=== PATIENT | male | born 1955 | race Caucasian/White ===

== ENCOUNTER 2017-06-26 19:58 | Inpatient (IN) | payer MEDICARE ==
[~2017-06-26] VITALS: Ht 177.8 cm; Wt 127.0 kg
[2017-06-26] VITALS (8 sets, daily range): BP systolic 100–121; BP diastolic 64–84; PULSE 100–131; RESP 18–20; TEMP 98.4–98.6; O2SAT 95–99
[~2017-06-26 19:58] MED LIST: APIX5 PO; GABA100C4 PO; OXYC1SOL5 PO; OXYC20 PO; PERI8.6T PO; Z.0.WALKERFOLD
--- NOTE | 2017-06-26 20:29 | PD ---
HPI Chief Complaint: Cardiac Complaint Time Seen by Provider: 20:17 Travel History International Travel<30 days: No Contact w/Intl Traveler<30days: No Traveled to known affect area: No History of Present Illness HPI The patient is a 61-year-old male that went to an urgent care center because of flu symptoms, cough and congestion. When he was there was found that he had atrial fibrillation. The patient has no history of atrial fibrillation and he was sent to the emergency department. He denies any chest pain, fever or shortness of breath. He denies coughing up any blood. He has been on a course the past for DVT and pulmonary embolus but he has been off Eliquis now for about 6 months. The patient states for the past 2 weeks he has noted palpitations but states he could have had atrial fibrillation for several years. He states his last EKG was several years ago. PFSH Past Medical History Hx Anticoagulant Therapy: No (Prior history) Arthritis: Yes Autoimmune Disease: No Anxiety: No Depression: No Heart Rhythm Problems: No Cancer: No Cardiovascular Problems: Yes High Cholesterol: No Chemotherapy: No Chest Pain: No Congestive Heart Failure: No Diabetes: No Diminished Hearing: No Endocrine: No Gastrointestinal Disorders: Yes GERD: No Genitourinary: No Headaches: Yes Hiatal Hernia: No Hypertension: Yes Immune Disorder: No Implanted Vascular Access Dvce: No Musculoskeletal: Yes Neurologic: Yes Psychiatric: No Reproductive: No Respiratory: No Immunizations Current: No Radiation Therapy: No Seizures: No Sickle Cell Disease: No Thyroid Disease: No Ulcer: No ?: Not Past Surgical History Abdominal Surgery: No AICD: No Arteriovenous Shunt: No Cardiac Surgery: No Cholecystectomy: Yes (12/31/15) Ear Surgery: No Endocrine Surgery: No Eye Surgery: No Genitourinary Surgery: No Gynecologic Surgery: No Insulin Pump: No Joint Replacement: No Neurologic Surgery: No Oral Surgery: No Pacemaker: No Thoracic Surgery: No Other Surgery: Yes (BILATERAL ROTATOR CUFF SURGERIES) Social History Alcohol Use: Yes (RARE) Tobacco Use: No (QUIT 15 + YRS) Substance Use: No Allergies-Medications (Allergen,Severity, Reaction): Coded Allergies: No Known Allergies (Unverified Allergy, Unknown, 06/26/17) Reported Meds & Prescriptions Reported Meds & Active Scripts Active Review of Systems Except as stated in HPI: all other systems reviewed are Neg Physical Exam Narrative GENERAL: The patient is alert, oriented 3 in no apparent distress. His vital signs show heart rate of 131 with blood pressure 100/72. SKIN: Focused skin assessment warm/dry. HEAD: Atraumatic. Normocephalic. EYES: Pupils equal and round. No scleral icterus. No injection or drainage. ENT: No nasal bleeding or discharge. Mucous membranes pink and moist. NECK: Trachea midline. No JVD. CARDIOVASCULAR: Atrial fibrillation with RVR. No murmur appreciated. RESPIRATORY: No accessory muscle use. Clear to auscultation. Breath sounds equal bilaterally. GASTROINTESTINAL: Abdomen soft, non-tender, nondistended. Hepatic and splenic margins not palpable. MUSCULOSKELETAL: No obvious deformities. No clubbing. No cyanosis. No edema. NEUROLOGICAL: Awake and alert. No obvious cranial nerve deficits. Motor grossly within normal limits. Normal speech. PSYCHIATRIC: Appropriate mood and affect; insight and judgment normal. Data Data Last Documented VS Vital Signs Date Time Temp Pulse Resp B/P (MAP) Pulse Ox O2 Delivery O2 Flow Rate FiO2 06/26/17 22:10 102 20 109/64 (79) 99 Room Air 06/26/17 20:18 98.6 Orders Orders Electrocardiogram (06/26/17 20:24) B-Type Natriuretic Peptide (06/26/17 20:24) Ckmb (Isoenzyme) Profile (06/26/17 20:24) Complete Blood Count With Diff (06/26/17 20:24) Comprehensive Metabolic Panel (06/26/17 20:24) Magnesium (Mg) (06/26/17 20:24) Prothrombin Time / Inr (Pt) (06/26/17 20:24) Act Partial Throm Time (Ptt) (06/26/17 20:24) Troponin I (06/26/17 20:24) Chest, Single Ap (06/26/17 20:24) Ecg Monitoring (06/26/17 20:24) Bilateral Bp Monitoring (06/26/17 20:24) Iv Access Insert/Monitor (06/26/17 20:24) Oximetry (06/26/17 20:24) Oxygen Administration (06/26/17 20:24) Aspirin (Aspirin) (06/26/17 20:30) Sodium Chloride 0.9% Flush (Ns Flush) (06/26/17 20:30) Influenzae A/B Antigen (06/26/17 20:25) CKMB (06/26/17 20:30) CKMB% (06/26/17 20:30) Diltiazem Inj (Cardizem Inj) (06/26/17 21:45) Admit To Inpatient (06/26/17 ) Vital Signs (Adult) Q4H (06/26/17 22:22) Activity Oob With Assistance (06/26/17 22:22) Stretcher Drier Operator / Telemetry .CONTINUOUS (06/26/17 22:22) Intake + Output ILDA.QSHIFT (06/26/17 22:22) Diet Heart Healthy (06/27/17 Breakfast) Sodium Chlor 0.9% 1000 Ml Inj (Ns 1000 M (06/26/17 22:22) Sodium Chloride 0.9% Flush (Ns Flush) (06/26/17 22:30) Sodium Chloride 0.9% Flush (Ns Flush) (06/27/17 09:00) Ondansetron Inj (Zofran Inj) (06/26/17 22:30) Comprehensive Metabolic Panel (06/27/17 06:00) Complete Blood Count With Diff (06/27/17 06:00) Troponin I (06/27/17 00:00) Troponin I (06/27/17 06:00) Enoxaparin Inj (Lovenox Inj) (06/27/17 09:00) Acetaminophen (Tylenol) (06/26/17 22:30) Acetamin-Hydrocod 325-5 Mg ([employer] 5-325 (06/26/17 22:30) Acetamin-Hydrocod 325-10 Mg ([employer] 10-32 (06/26/17 22:30) Docusate Sodium-Senna (Celestina-Colace) (06/27/17 09:00) Magnesium Hydroxide Liq (Milk Of Magnesi (06/26/17 22:30) Sennosides (Senokot) (06/26/17 22:30) Bisacodyl Supp (Dulcolax Supp) (06/26/17 22:30) Lactulose Liq (Lactulose Liq) (06/26/17 22:30) Inpatient Certification (06/26/17 ) Consult Cardiology (06/26/17 ) Echo 2d Comp With Doppler (06/26/17 ) Vital Signs (Adult) Q15MX4,Q4H (06/26/17 22:24) Stretcher Drier Operator / Telemetry ILDA.Q8H (06/26/17 22:24) Cardiac Rhythm ILDA.Q8H (06/26/17 22:24) Notify Dr: Other (06/26/17 22:24) Diltiazem Inj (Cardizem Inj) (06/26/17 22:30) Diltiazem Inj (Cardizem Inj) (06/26/17 22:30) Admit Order (Ed Use Only) (06/26/17 22:25) Labs Laboratory Tests Test 06/26/17 20:30 White Blood Count 5.7 TH/MM3 Red Blood Count 4.86 MIL/MM3 Hemoglobin 14.6 GM/DL Hematocrit 43.9 % Mean Corpuscular Volume 90.2 FL Mean Corpuscular Hemoglobin 30.1 PG Mean Corpuscular Hemoglobin Concent 33.4 % Red Cell Distribution Width 12.2 % Platelet Count 248 TH/MM3 Mean Platelet Volume 7.7 FL Neutrophils (%) (Auto) 61.4 % Lymphocytes (%) (Auto) 21.0 % Monocytes (%) (Auto) 13.3 % Eosinophils (%) (Auto) 3.6 % Basophils (%) (Auto) 0.7 % Neutrophils # (Auto) 3.5 TH/MM3 Lymphocytes # (Auto) 1.2 TH/MM3 Monocytes # (Auto) 0.8 TH/MM3 Eosinophils # (Auto) 0.2 TH/MM3 Basophils # (Auto) 0.0 TH/MM3 CBC Comment DIFF FINAL Differential Comment Prothrombin Time 11.1 SEC Prothromb Time International Ratio 1.1 RATIO Activated Partial Thromboplast Time 25.4 SEC Blood Urea Nitrogen 15 MG/DL Creatinine 0.87 MG/DL Random Glucose 88 MG/DL Total Protein 7.2 GM/DL Albumin 3.5 GM/DL Calcium Level 8.5 MG/DL Magnesium Level 2.1 MG/DL Alkaline Phosphatase 52 U/L Aspartate Amino Transf (AST/SGOT) 19 U/L Alanine Aminotransferase (ALT/SGPT) 24 U/L Total Bilirubin 0.7 MG/DL Sodium Level 141 MEQ/L Potassium Level 3.8 MEQ/L Chloride Level 107 MEQ/L Carbon Dioxide Level 27.7 MEQ/L Anion Gap 6 MEQ/L Estimat Glomerular Filtration Rate 90 ML/MIN Total Creatine Kinase 157 U/L Creatine Kinase MB 1.6 NG/ML Troponin I LESS THAN 0.02 NG/ML B-Type Natriuretic Peptide 46 PG/ML MDM Medical Decision Making Medical Screen Exam Complete: Yes Emergency Medical Condition: Yes Medical Record Reviewed: Yes Interpretation(s) The influenza A/B antigen is negative for flu a and flu B antigen. The CBC is normal. The EKG shows atrial fibrillation with RVR at 129. Differential Diagnosis No onset atrial fibrillation, flu syndrome, pneumonia, acute coronary syndrome Narrative Course The patient has new-onset atrial fibrillation. I discussed the patient with Dr. Mirza, the patient will be admitted to her. The patient apparently needs a Cardizem drip, the Cardizem bullae wore off quickly and the heart rate went to 120 to 130. Boby Calloway MD Jun 26, 2017 20:29
[2017-06-26] MEDS ORDERED: ASPIRIN 325 MG TAB PO ONE (20:30)
[2017-06-26] MEDS ORDERED: SODIUM CHLORIDE 0.9% FLUSH 10 ML FLUSH IVF PRN (20:30)
[2017-06-26 20:47] LABS: AUTOMATED NEUTROPHIL # 3.5 TH/MM3 (1.8-7.7); BASOPHIL % 0.7 % (0.0-2.0); EOSINOPHIL # 0.2 TH/MM3 (0-0.4); EOSINOPHIL % 3.6 % (0.0-4.0); HEMATOCRIT 43.9 % (39.0-51.0); HEMOGLOBIN 14.6 GM/DL (13.0-17.0); LYMPHOCYTE # 1.2 TH/MM3 (1.0-4.8); MEAN CELL VOLUME 90.2 FL (80.0-100.0); MEAN CORPUSCULAR HEMOGLOBIN 30.1 PG (27.0-34.0); MEAN CORPUSCULAR HGB CONC 33.4 % (32.0-36.0); MEAN PLATELET VOLUME 7.7 FL (7.0-11.0); MONO % 13.3 % (0.0-8.0); MONOCYTE # 0.8 TH/MM3 (0-0.9); NEUT % 61.4 % (16.0-70.0); PLATELET COUNT 248 TH/MM3 (150-450); RED BLOOD COUNT 4.86 MIL/MM3 (4.50-5.90); RED CELL DISTRIBUTION WIDTH 12.2 % (11.6-17.2); WHITE BLOOD COUNT 5.7 TH/MM3 (4.0-11.0)
[2017-06-26 20:55] LABS: CHLORIDE 107 MEQ/L (98-107); SODIUM (NA) 141 MEQ/L (136-145)
[2017-06-26 20:58] LABS: CALCIUM 8.5 MG/DL (8.5-10.1)
[2017-06-26 20:59] LABS: ALBUMIN 3.5 GM/DL (3.4-5.0); BICARBONATE 27.7 MEQ/L (21.0-32.0); BLOOD UREA NITROGEN 15 MG/DL (7-18); GLUCOSE,RANDOM 88 MG/DL (74-106); MAGNESIUM 2.1 MG/DL (1.5-2.5)
[2017-06-26 21:01] LABS: INTERNATIONAL NORMALIZED RATIO 1.1 RATIO; PROTHROMBIN TIME - PATIENT 11.1 SEC (9.8-11.6)
[2017-06-26 21:02] LABS: ALT (GPT) 24 U/L (12-78); AST (GOT) 19 U/L (15-37); CREATININE 0.87 MG/DL (0.60-1.30); GLOMERULAR FILTRATION RATE 90 ML/MIN (>89)
[2017-06-26 21:03] LABS: TOTAL BILIRUBIN ADULT 0.7 MG/DL (0.2-1.0)
[2017-06-26 21:05] LABS: ALKALINE PHOSPHATASE 52 U/L (45-117); TOTAL PROTEIN 7.2 GM/DL (6.4-8.2)
[2017-06-26 21:07] LABS: TROPONIN I LESS THAN 0.02 NG/ML (0.02-0.05)
--- NOTE | 2017-06-26 21:14 | RADRPT ---
EXAM DATE/TIME: 06/26/2017 20:47 [facility] COMPARISON: No previous studies available for comparison. INDICATIONS : Palpitations. MEDICAL HISTORY : Deep venous thrombosis. Hypertension SURGICAL HISTORY : Cholecystectomy. ENCOUNTER: Initial ACUITY: 1 day PAIN SCORE: 3/10 LOCATION: Bilateral chest FINDINGS: A single view of the chest demonstrates the lungs to be symmetrically aerated without evidence of mas s, infiltrate or effusion. The cardiomediastinal contours are unremarkable. Osseous structures are intact. CONCLUSION: 1. No acute disease. Brandon Coyle MD on June 26, 2017 at 21:11 Board Certified Radiologist. This report was verified electronically.
[2017-06-26] MEDS ORDERED: DILTIAZEM HCL 25 MG/5 ML VIAL IV ONE (21:45)
[2017-06-26] MEDS: SODIUM CHLOR 0.9% 1000 ML INJ 1,000 ML IV SCH (22:22)
[2017-06-26] MEDS ORDERED: ONDANSETRON HCL 4 MG/2 ML VIAL IVP PRN (22:30)
[2017-06-26] MEDS ORDERED: ACETAMINOPHEN 325 MG TAB PO PRN (22:30)
[2017-06-26] MEDS ORDERED: SENNOSIDES 8.6 MG TAB PO PRN (22:30)
[2017-06-26] MEDS ORDERED: MAGNESIUM HYDROXIDE SUSP 30 ML CUP PO PRN (22:30)
[2017-06-26] MEDS ORDERED: ACETAMINOPHEN/HYDROcodone 325 MG/5 MG TAB PO PRN (22:30)
[2017-06-26] MEDS ORDERED: SODIUM CHLORIDE 0.9% FLUSH 10 ML FLUSH IV FLUSH PRN (22:30)
[2017-06-26] MEDS ORDERED: BISACODYL 10 MG SUPP RECTAL PRN (22:30)
[2017-06-26] MEDS ORDERED: DILTIAZEM HCL 25 MG/5 ML VIAL IV PUSH ONE (22:30)
[2017-06-26] MEDS ORDERED: ACETAMINOPHEN/HYDROcodone 325 MG/10 MG TAB PO PRN (22:30)
[2017-06-26] MEDS ORDERED: LACTULOSE SYRUP 20 GM/30 ML CUP PO PRN (22:30)
[2017-06-26] MEDS ORDERED: DILTIAZEM INJ 125 MG in SODIUM CHLORIDE 0.9% INJ 100 ML IV PRN (22:30)
[2017-06-26] MEDS ORDERED: CHLORHEXIDINE GLUCONATE 2 % 1 PACK (2 CLOTHS)(extra cloths) TOPICAL PRN (23:45)
[2017-06-27] VITALS (42 sets, daily range): BP systolic 64–211; BP diastolic 45–98; PULSE 54–112; RESP 15–48; TEMP 97.5–98.9; O2SAT 92–98
[2017-06-27] MEDS ORDERED: CHLORHEXIDINE GLUCONATE 2 % 1 PACK (2 CLOTHS)(taper/protocol) TOPICAL SCH (04:00)
[2017-06-27] MEDS ORDERED: SODIUM CHLORID 0.9% 500 ML INJ 500 ML IV ONE (04:15)
[2017-06-27] MEDS: SODIUM CHLOR 0.9% 1000 ML INJ 1,000 ML IV SCH (04:35)
[2017-06-27] MEDS ORDERED: FAMOTIDINE 20 MG/2 ML VIAL IV PUSH SCH (05:00)
[2017-06-27 05:51] LABS: AUTOMATED NEUTROPHIL # 6.2 TH/MM3 (1.8-7.7); BASOPHIL % 0.4 % (0.0-2.0); EOSINOPHIL # 0.1 TH/MM3 (0-0.4); EOSINOPHIL % 1.5 % (0.0-4.0); HEMATOCRIT 38.6 % (39.0-51.0); HEMOGLOBIN 12.9 GM/DL (13.0-17.0); LYMPH % 9.3 % (9.0-44.0); LYMPHOCYTE # 0.7 TH/MM3 (1.0-4.8); MEAN CELL VOLUME 90.1 FL (80.0-100.0); MEAN CORPUSCULAR HEMOGLOBIN 30.2 PG (27.0-34.0); MEAN CORPUSCULAR HGB CONC 33.5 % (32.0-36.0); MEAN PLATELET VOLUME 7.4 FL (7.0-11.0); MONO % 9.2 % (0.0-8.0); MONOCYTE # 0.7 TH/MM3 (0-0.9); NEUT % 79.6 % (16.0-70.0); PLATELET COUNT 232 TH/MM3 (150-450); RED BLOOD COUNT 4.28 MIL/MM3 (4.50-5.90); RED CELL DISTRIBUTION WIDTH 12.2 % (11.6-17.2); WHITE BLOOD COUNT 7.7 TH/MM3 (4.0-11.0)
[2017-06-27 05:58] LABS: CHLORIDE 107 MEQ/L (98-107); SODIUM (NA) 141 MEQ/L (136-145)
[2017-06-27 06:09] LABS: ALKALINE PHOSPHATASE 44 U/L (45-117); ALT (GPT) 22 U/L (12-78); AST (GOT) 18 U/L (15-37); BICARBONATE 27.1 MEQ/L (21.0-32.0); BLOOD UREA NITROGEN 17 MG/DL (7-18); CALCIUM 7.6 MG/DL (8.5-10.1); GLOMERULAR FILTRATION RATE 76 ML/MIN (>89); GLUCOSE,RANDOM 138 MG/DL (74-106); TOTAL BILIRUBIN ADULT 0.8 MG/DL (0.2-1.0); TOTAL PROTEIN 6.3 GM/DL (6.4-8.2)
[2017-06-27 06:19] LABS: TROPONIN I LESS THAN 0.02 NG/ML (0.02-0.05)
--- NOTE | 2017-06-27 08:43 | PD.CONS ---
HPI Consult Requested By Primary Care Physician Miranda Bell MD History of Present Illness 61-year-old male that went to an urgent care center because of flu symptoms, cough and congestion. When he was there was found that he had atrial fibrillation. The patient has no history of atrial fibrillation and he was sent to the emergency department. He denies any chest pain, fever or shortness of breath. He has been on a course the past for DVT and pulmonary embolus but he has been off Eliquis now for about 6 months. The patient states for the past 2 weeks he has noted palpitations but states he could have had atrial fibrillation for several years. Review of Systems Consitutional: DENIES: Fatigue, Fever, Chills, Weight gain, Weight loss Eyes: DENIES: Amaurosis Fugax, Change in vision HEENT: DENIES: Lightheadedness, Change in hearing Respiratory: DENIES: See HPI, Cough, Snoring, Shortness of breath, Wheezing, Sputum production Cardiovascular: DENIES: See HPI, Chest pain, Palpitations, Syncope, Tachycardia Gastrointestinal: DENIES: Nausea, Vomiting, Change in bowel habits, Reflux, Bloody stools, Melena Genitourinary: DENIES: Urinary incontinence, Difficulty voiding Integumentary: DENIES: Rash Neurologic: DENIES: Tingling or numbness, Memory problems, Poor Balance, Stroke symptoms Musculoskeletal: DENIES: Joint pain, Muscle pain, Limited range of motion, Back pain Psychiatric: DENIES: Anxiety, Depression, Sleep disturbances Hematologic: DENIES: Bruising tendencies, Bleeding tendencies Endocrine: DENIES: Weight gain, Weight loss, Thyroid disease Past Family Social History Allergies: Coded Allergies: No Known Allergies (Unverified Allergy, Unknown, 06/26/17) Reported Medications Reported Meds & Active Scripts Active Active Ordered Medications Current Medications Medications (Trade) Dose Ordered Sig/Sharath Route Start Time Stop Time Status Last Admin (NS Flush) 2 ml UNSCH PRN IVF 06/26/17 20:30 06/26/17 20:37 Sodium Chloride 1,000 ml @ 100 mls/hr Q10H IV 06/26/17 22:22 06/27/17 04:35 (NS Flush) 2 ml UNSCH PRN IV FLUSH 06/26/17 22:30 (NS Flush) 2 ml BID IV FLUSH 06/27/17 09:00 (Zofran Inj) 4 mg Q6H PRN IVP 06/26/17 22:30 06/27/17 02:51 (Lovenox Inj) 40 mg Q24H SQ 06/27/17 09:00 06/27/17 08:38 (Tylenol) 650 mg Q6H PRN PO 06/26/17 22:30 ([place] 5-325 Mg) 1 tab Q4H PRN PO 06/26/17 22:30 ([place] 10-325 Mg) 1 tab Q4H PRN PO 06/26/17 22:30 06/27/17 01:10 (Celestina-Colace) 1 tab BID PO 06/27/17 09:00 06/27/17 08:38 (Milk Of Magnesia Liq) 30 ml Q12H PRN PO 06/26/17 22:30 (Senokot) 17.2 mg Q12H PRN PO 06/26/17 22:30 (Dulcolax Supp) 10 mg DAILY PRN RECTAL 06/26/17 22:30 (Lactulose Liq) 30 ml DAILY PRN PO 06/26/17 22:30 Diltiazem HCl 125 mg/Sodium Chloride 125 ml @ 5 mls/hr TITRATE PRN IV 06/26/17 22:30 Future Hold 06/26/17 22:58 Miscellaneous Information Patient in critical care unit? Ass... [id number] .XX 06/26/17 23:45 06/26/17 23:45 (Chlorhexidine 2% Cloth) 3 pack DAILY@04 TOPICAL 06/27/17 04:00 07/01/17 04:01 06/27/17 04:00 (Chlorhexidine 2% Cloth) 3 pack UNSCH PRN TOPICAL 06/26/17 23:45 07/01/17 23:59 (Flu (Quadrivalent) Vaccine Inj) 0.5 ml ONCE ONCE IM 06/27/17 09:00 06/27/17 09:01 06/27/17 08:40 (Pepcid Inj) 20 mg Q12H IV PUSH 06/27/17 05:00 06/27/17 04:34 Physical Exam Vital Signs Vital Signs Date Time Temp Pulse Resp B/P (MAP) Pulse Ox O2 Delivery O2 Flow Rate FiO2 06/27/17 06:46 80 18 93/73 (80) 1/6/18 06:31 80 20 85/59 (68) 06/27/17 06:16 82 17 86/58 (67) 06/27/17 06:11 88 06/27/17 06:04 97.5 78 22 82/64 (70) 92 06/27/17 05:37 86 18 95/68 (77) 95 06/27/17 05:15 82 19 85/63 (70) 06/27/17 05:01 80 21 81/61 (68) 06/27/17 04:16 82 19 89/54 (66) 06/27/17 04:01 76 17 89/69 (76) 06/27/17 04:00 78 06/27/17 03:53 76 16 99/66 (77) 06/27/17 03:43 70 16 92/65 (74) 98 06/27/17 03:27 58 46 78/48 (58) 06/27/17 03:16 54 48 64/51 (55) 06/27/17 02:48 68 22 211/92 (131) 06/27/17 02:31 78 33 104/69 (81) 06/27/17 02:16 94 18 129/82 (98) 06/27/17 02:10 18 06/27/17 02:01 98 17 145/93 (110) 06/27/17 02:00 72 06/27/17 01:46 100 20 151/98 (115) 06/27/17 01:31 94 20 150/96 (114) 06/27/17 01:16 102 15 118/74 (89) 06/27/17 01:01 98 38 149/80 (103) 06/27/17 00:46 96 32 142/82 (102) 06/27/17 00:37 104 36 134/81 (98) 06/27/17 00:14 111 06/27/17 00:14 108 06/26/17 23:27 98.4 100 20 117/66 (83) 98 06/26/17 23:05 94 20 106/65 (79) 99 06/26/17 22:58 104 106/65 06/26/17 22:10 102 20 109/64 (79) 99 Room Air 06/26/17 22:02 108 20 118/71 (87) 97 Room Air 06/26/17 22:01 125 18 110/73 (85) 96 Room Air 06/26/17 21:49 111 18 114/78 (90) 95 Room Air 121/84 (96) 06/26/17 20:51 125 20 117/71 (86) 97 Room Air 105/70 (82) 06/26/17 20:22 131 20 97 Room Air 06/26/17 20:18 98.6 131 20 100/72 (81) 99 Physical Exam GENERAL: Well-nourished, well-developed patient. SKIN: Warm and dry. HEAD: Normocephalic. EYES: No scleral icterus. No injection or drainage. NECK: Supple, trachea midline. No JVD or lymphadenopathy. CARDIOVASCULAR: Irr Irr without murmurs, gallops, or rubs. RESPIRATORY: Breath sounds equal bilaterally. No accessory muscle use. GASTROINTESTINAL: Abdomen soft, non-tender, nondistended. EXTREMITIES: No cyanosis, or edema. NEUROLOGICAL: Awake, alert, and oriented x 3. Non-focal. Laboratory Laboratory Tests Test 06/26/17 20:30 06/27/17 00:00 06/27/17 05:38 White Blood Count 5.7 7.7 Red Blood Count 4.86 4.28 Hemoglobin 14.6 12.9 Hematocrit 43.9 38.6 Mean Corpuscular Volume 90.2 90.1 Mean Corpuscular Hemoglobin 30.1 30.2 Mean Corpuscular Hemoglobin Concent 33.4 33.5 Red Cell Distribution Width 12.2 12.2 Platelet Count 248 232 Mean Platelet Volume 7.7 7.4 Neutrophils (%) (Auto) 61.4 79.6 Lymphocytes (%) (Auto) 21.0 9.3 Monocytes (%) (Auto) 13.3 9.2 Eosinophils (%) (Auto) 3.6 1.5 Basophils (%) (Auto) 0.7 0.4 Neutrophils # (Auto) 3.5 6.2 Lymphocytes # (Auto) 1.2 0.7 Monocytes # (Auto) 0.8 0.7 Eosinophils # (Auto) 0.2 0.1 Basophils # (Auto) 0.0 0.0 CBC Comment DIFF FINAL DIFF FINAL Differential Comment Prothrombin Time 11.1 Prothromb Time International Ratio 1.1 Activated Partial Thromboplast Time 25.4 Blood Urea Nitrogen 15 17 Creatinine 0.87 1.00 Random Glucose 88 138 Total Protein 7.2 6.3 Albumin 3.5 3.0 Calcium Level 8.5 7.6 Magnesium Level 2.1 Alkaline Phosphatase 52 44 Aspartate Amino Transf (AST/SGOT) 19 18 Alanine Aminotransferase (ALT/SGPT) 24 22 Total Bilirubin 0.7 0.8 Sodium Level 141 141 Potassium Level 3.8 3.5 Chloride Level 107 107 Carbon Dioxide Level 27.7 27.1 Anion Gap 6 7 Estimat Glomerular Filtration Rate 90 76 Total Creatine Kinase 157 Creatine Kinase MB 1.6 Troponin I LESS THAN 0.02 LESS THAN 0.02 LESS THAN 0.02 B-Type Natriuretic Peptide 46 Date/Time Source Procedure Growth Status 06/26/17 20:35 Nasal Washing Influenza Types A,B Antigen (JESSICA) - Final NEGATIVE FOR FLU A AND B ANTIGEN.... Complete Result Diagram: 06/27/17 0538 06/27/17537 Imaging Last Impressions Chest X-Ray 06/26/172023 Signed Impressions: Service Date/Time: Monday, June 26, 2017 20:47 - CONCLUSION: 1. No acute disease. Brandon Coyle MD Assessment and Plan Problem List: (1) Atrial fibrillation ICD Codes: I48.91 - Unspecified atrial fibrillation Plan: ?New onset Afib Rate control Cardiac enzymes negative No CV complaints Recommendations 1. Wean Cardizem off 2. Cardizem 30mg PO QID 3. Start Eliquis 5mg PO BID 4. Follow with Cardiology upon discharge Thank you for the opportunity for take part in the care of this patient (2) Atypical chest pain ICD Codes: R07.89 - Other chest pain Status: Acute (3) H/O tobacco use, presenting hazards to health ICD Codes: Z87.891 - Personal history of nicotine dependence Status: Acute (4) Pulmonary embolism ICD Codes: I26.99 - Other pulmonary embolism without acute cor pulmonale Status: Acute (5) DVT (deep venous thrombosis) ICD Codes: I82.409 - Acute embolism and thrombosis of unspecified deep veins of unspecified lower extremity Status: Acute Problem Qualifiers (1) Atrial fibrillation: Qualified Codes: I48.0 - Paroxysmal atrial fibrillation Steve Medrano MD Jun 27, 2017 08:43
[2017-06-27] MEDS ORDERED: INFLUENZA VIRUS VACCINE (QUADRIVALENT) 0.5 ML SYR IM ONE (09:00)
[2017-06-27] MEDS ORDERED: SODIUM CHLORIDE 0.9% FLUSH 10 ML FLUSH IV FLUSH SCH (09:00)
[2017-06-27] MEDS ORDERED: DOCUSATE SODIUM 50 MG/SENNA 8.6 MG TAB PO SCH (09:00)
[2017-06-27] MEDS ORDERED: ENOXAPARIN SODIUM 40 MG/0.4 ML SYRINGE SQ SCH (09:00)
--- NOTE | 2017-06-27 11:59 | HHI.HP ---
[facility] Service [facility] Primary Care Physician Miranda Bell MD Admission Diagnosis atrial fibrillation with RVR Diagnoses: Chief Complaint: afib, coughing Travel History International Travel<30 Days: No Contact w/Intl Traveler <30 Da: No Traveled to Known Affected Are: No History of Present Illness 61-year-old white male being admitted for A. fib with RVR. Patient was in his usual state of health until about a week ago when he began experiencing a hacking cough which progressed in its intensity throughout the week. He reports having intermittent episodes of a racing heartbeat and lightheadedness. Due to persistence of symptoms he proceeded to the urgent care yesterday where he had an EKG done which demonstrated atrial fibrillation with RVR and the patient was referred to the emergency department. Patient denies having any chest pain outside of his coughing spells. Review of Systems Except as stated in HPI: all other systems reviewed are Neg Past Family Social History Past Medical History Sleep apnea Pulmonary emboli, lower extremity thromboembolism Past Surgical History Bilateral shoulder surgery, cholecystectomy Allergies: Coded Allergies: No Known Allergies (Unverified Allergy, Unknown, 06/26/17) Family History Hypertension Social History Ex-smoker, smoked since his teenage years until about 20 years ago. Reports being a very light intermittent alcohol drinker Physical Exam Vital Signs Vital Signs Date Time Temp Pulse Resp B/P (MAP) Pulse Ox O2 Delivery O2 Flow Rate FiO2 06/27/17 11:01 100 29 100/60 (73) 06/27/17 10:01 102 21 99/45 (63) 06/27/17 10:00 98.9 06/27/17 09:14 106 31 105/64 (78) 06/27/17 09:12 98 21 89/72 (78) 06/27/17 08:46 96 21 108/74 (85) 06/27/17 08:31 108 24 112/79 (90) 06/27/17 08:16 86 17 103/73 (83) 06/27/17 08:01 88 17 99/79 (86) 06/27/17 08:00 100 06/27/17 07:46 90 18 100/69 (79) 06/27/17 07:31 90 20 98/77 (84) 06/27/17 07:16 80 19 99/67 (78) 06/27/17 07:01 84 20 100/63 (75) 06/27/17 06:46 80 18 93/73 (80) 06/27/17 06:31 80 20 85/59 (68) 06/27/17 06:16 82 17 86/58 (67) 06/27/17 06:11 88 06/27/17 06:04 97.5 78 22 82/64 (70) 92 06/27/17 05:37 86 18 95/68 (77) 95 06/27/17 05:15 82 19 85/63 (70) 06/27/17 05:01 80 21 81/61 (68) 06/27/17 04:16 82 19 89/54 (66) 06/27/17 04:01 76 17 89/69 (76) 06/27/17 04:00 78 06/27/17 03:53 76 16 99/66 (77) 06/27/17 03:43 70 16 92/65 (74) 98 06/27/17 03:27 58 46 78/48 (58) 06/27/17 03:16 54 48 64/51 (55) 06/27/17 02:48 68 22 211/92 (131) 06/27/17 02:31 78 33 104/69 (81) 06/27/17 02:16 94 18 129/82 (98) 06/27/17 02:10 18 06/27/17 02:01 98 17 145/93 (110) 06/27/17 02:00 72 06/27/17 01:46 100 20 151/98 (115) 06/27/17 01:31 94 20 150/96 (114) 06/27/17 01:16 102 15 118/74 (89) 06/27/17 01:01 98 38 149/80 (103) 06/27/17 00:46 96 32 142/82 (102) 06/27/17 00:37 104 36 134/81 (98) 06/27/17 00:14 111 06/27/17 00:14 108 1/5/18 23:27 98.4 100 20 117/66 (83) 98 06/26/17 23:05 94 20 106/65 (79) 99 06/26/17 22:58 104 106/65 06/26/17 22:10 102 20 109/64 (79) 99 Room Air 06/26/17 22:02 108 20 118/71 (87) 97 Room Air 06/26/17 22:01 125 18 110/73 (85) 96 Room Air 06/26/17 21:49 111 18 114/78 (90) 95 Room Air 121/84 (96) 06/26/17 20:51 125 20 117/71 (86) 97 Room Air 105/70 (82) 06/26/17 20:22 131 20 97 Room Air 06/26/17 20:18 98.6 131 20 100/72 (81) 99 Physical Exam VS: afebrile GENERAL: Middle-aged white male, obese, no acute distress SKIN: Warm and dry. EYES: No scleral icterus. No injection or drainage. ENT: No nasal bleeding or discharge. Mucous membranes pink and moist. CARDIOVASCULAR: Regular rate and rhythm currently . no murmurs RESPIRATORY: No accessory muscle use. Clear to auscultation. Breath sounds equal bilaterally. GASTROINTESTINAL: Abdomen soft, non-tender, nondistended. Extremities: No clubbing, cyanosis, or edema. No obvious deformities. MUSCULOSKELETAL: grossly intact ROM with 5/5; adequate muscle bulk and tone for age and habitus NEUROLOGICAL: Awake and alert. No obvious cranial nerve deficits. No facial droop nor slurred speech noted. PSYCHIATRIC: Appropriate mood and affect; insight and judgment normal. Laboratory Laboratory Tests Test 06/26/17 20:30 06/27/17 00:00 06/27/17 05:38 White Blood Count 5.7 7.7 Red Blood Count 4.86 4.28 Hemoglobin 14.6 12.9 Hematocrit 43.9 38.6 Mean Corpuscular Volume 90.2 90.1 Mean Corpuscular Hemoglobin 30.1 30.2 Mean Corpuscular Hemoglobin Concent 33.4 33.5 Red Cell Distribution Width 12.2 12.2 Platelet Count 248 232 Mean Platelet Volume 7.7 7.4 Neutrophils (%) (Auto) 61.4 79.6 Lymphocytes (%) (Auto) 21.0 9.3 Monocytes (%) (Auto) 13.3 9.2 Eosinophils (%) (Auto) 3.6 1.5 Basophils (%) (Auto) 0.7 0.4 Neutrophils # (Auto) 3.5 6.2 Lymphocytes # (Auto) 1.2 0.7 Monocytes # (Auto) 0.8 0.7 Eosinophils # (Auto) 0.2 0.1 Basophils # (Auto) 0.0 0.0 CBC Comment DIFF FINAL DIFF FINAL Differential Comment Prothrombin Time 11.1 Prothromb Time International Ratio 1.1 Activated Partial Thromboplast Time 25.4 Blood Urea Nitrogen 15 17 Creatinine 0.87 1.00 Random Glucose 88 138 Total Protein 7.2 6.3 Albumin 3.5 3.0 Calcium Level 8.5 7.6 Magnesium Level 2.1 Alkaline Phosphatase 52 44 Aspartate Amino Transf (AST/SGOT) 19 18 Alanine Aminotransferase (ALT/SGPT) 24 22 Total Bilirubin 0.7 0.8 Sodium Level 141 141 Potassium Level 3.8 3.5 Chloride Level 107 107 Carbon Dioxide Level 27.7 27.1 Anion Gap 6 7 Estimat Glomerular Filtration Rate 90 76 Total Creatine Kinase 157 Creatine Kinase MB 1.6 Troponin I LESS THAN 0.02 LESS THAN 0.02 LESS THAN 0.02 B-Type Natriuretic Peptide 46 Date/Time Source Procedure Growth Status 06/26/17 20:35 Nasal Washing Influenza Types A,B Antigen (JESSICA) - Final NEGATIVE FOR FLU A AND B ANTIGEN.... Complete Result Diagram: 06/27/17 0538 06/27/17537 Imaging Last Impressions Chest X-Ray 06/26/172023 Signed Impressions: Service Date/Time: Monday, June 26, 2017 20:47 - CONCLUSION: 1. No acute disease. Brandon Coyle MD Caprini VTE Risk Assessment Caprini VTE Risk Assessment: Mod/High Risk (score >= 2) Caprini Risk Assessment Model Point Value = 1 Point Value = 2 Point Value = 3 Point Value = 5 Age 41-60 Minor surgery BMI > 25 kg/m2 Swollen legs Varicose veins or History of unexplained or recurrent spontaneous Oral contraceptives or hormone replacement Sepsis (< 1 month) Serious lung disease, including pneumonia (< 1 month) Abnormal pulmonary function Acute myocardial infarction Congestive heart failure (< 1 month) History of inflammatory bowel disease Medical patient at bed rest Age 61-74 Arthroscopic surgery Major open surgery (> 45 min) Laparoscopic surgery (> 45 min) Malignancy Confined to bed (> 72 hours) Immobilizing plaster cast Central venous access Age >= 75 History of VTE Family history of VTE Factor V Leiden Prothrombin [id number] Lupus anticoagulant Anticardiolipin antibodies Elevated serum homocysteine Heparin-induced thrombocytopenia Other congenital or acquired thrombophilia Stroke (< 1 month) Elective arthroplasty Hip, pelvis, or leg fracture Acute spinal cord injury (< 1 month) Prophylaxis Regimen Total Risk Factor Score Risk Level Prophylaxis Regimen 0-1 Low Early ambulation 2 Moderate Order ONE of the following: *Sequential Compression Device (SCD) *Heparin 5000 units SQ BID 3-4 Higher Order ONE of the following medications: *Heparin 5000 units SQ TID *Enoxaparin/Lovenox 40 mg SQ daily (WT < 150 kg, CrCl > 30 mL/min) *Enoxaparin/Lovenox 30 mg SQ daily (WT < 150 kg, CrCl > 10-29 mL/min) *Enoxaparin/Lovenox 30 mg SQ BID (WT < 150 kg, CrCl > 30 mL/min) AND/OR *Sequential Compression Device (SCD) 5 or more Highest Order ONE of the following medications: *Heparin 5000 units SQ TID (Preferred with Epidurals) *Enoxaparin/Lovenox 40 mg SQ daily (WT < 150 kg, CrCl > 30 mL/min) *Enoxaparin/Lovenox 30 mg SQ daily (WT < 150 kg, CrCl > 10-29 mL/min) *Enoxaparin/Lovenox 30 mg SQ BID (WT < 150 kg, CrCl > 30 mL/min) AND *Sequential Compression Device (SCD) Assessment and Plan Assessment and Plan Atrial fibrillation with RVR - I independently reviewed EKG which shows indeed A. fib with RVR. Cardiac enzymes are negative and cardiology consult has been appreciated with recommendations for Cardizem and eliquis. Echocardiogram has been ordered. - Originally started on Cardizem drip while on the floor, has been successfully weaned off of it, now on oral cardizem. Coughing - Likely viral URI. Writing for her meclizine codeine. Patient has met maximal benefit from hospitalization and is clinically stable for discharge. He was counseled on the risks and benefits of anticoagulation. Physician Certification 2 Midnight Certification Type: Admission for Inpatient Services Order for Inpatient Services The services are ordered in accordance with Medicare regulations or non- Medicare payer requirements, as applicable. In the case of services not specified as inpatient-only, they are appropriately provided as inpatient services in accordance with the 2-midnight benchmark. Estimated LOS (days): 2 2 days is the estimated time the patient will need to remain in the hospital, assuming treatment plan goals are met and no additional complications. Post-Hospital Plan: Home Juventino Escoto MD Jun 27, 2017 11:59
[2017-06-27] MEDS ORDERED: guaiFENesin/DEXTROMETHORPHAN 200 MG/20 MG/10 ML CUP PO PRN (12:00)
[2017-06-27] MEDS ORDERED: DILTIAZEM HCL 30 MG TAB PO SCH (12:00)
--- NOTE | 2017-06-27 12:00 | HHI.DCPOC ---
Discharge Care Plan Diagnosis: (1) Atrial fibrillation with RVR (2) Viral URI with cough Additional Problems DO NOT TAKE OR FILL YOUR ZPAK UNLESS YOUR SYMPTOMS OF COUGHING LAST 10 DAYS OR WORSEN Goals to Promote Your Health * To prevent worsening of your condition and complications * To maintain your health at the optimal level Directions to Meet Your Goals Take your medications as prescribed Follow your dietary instruction Follow activity as directed Keep your appointments as scheduled Take your immunizations and boosters as scheduled If your symptoms worsen call your PCP, if no PCP go to Urgent Care Center or Emergency Room Smoking is Dangerous to Your Health. Avoid second hand smoke Call the 24-hour hour crisis hotline for domestic abuse at Juventino Escoto MD Jun 27, 2017 12:00
[2017-06-27] MEDS ORDERED: ZITHTAB PO (12:03)
[2017-06-27] MEDS ORDERED: PROM6.256 PO (12:03)
[2017-06-27] MEDS ORDERED: APIX5TAB PO (12:03)
[2017-06-27] MEDS ORDERED: DILT31TA PO (12:03)
--- NOTE | 2017-06-27 13:02 | EKG ---
Date Performed: 06/26/2017 Time Performed: 20:11:39 PTAGE: 61 years EKG: ATRIAL FIBRILLATION WITH RAPID VENTRICULAR RESPONSE ABNORMAL RHYTHM ECG Compared to PREVIOUS TRACING , there is a rhythm from Sinus rhythm to atrial fibrillation. Clinical correlation recommended. PREVIOUS TRACIN01/23/2016 01.44 DOCTOR: Xiang Adair Interpretating Date/Time 06/27/2017 13:01:56
--- NOTE | 2017-06-27 18:30 | ECHRPT ---
Indication: ATRIAL FIB/FLUTTER CONCLUSIONS Normal left ventricular size. Mild concentric left ventricular hypertrophy. The left ventricular systolic function is low normal with an estimated ejection fraction in the rang e of 50- 55%. The left atrial size is [id number] dilated. Mild to moderate mitral valve regurgitation. There is trace tricuspid valve regurgitation. The estimated pulmonary arterial pressure is 40.9 mmHg. BP: 140 / 75 HR: 112 Rhythm: Sinus MEASUREMENTS (Male / Female) Normal Values Technical Quality:Fair 2D ECHO LV Diastolic Diameter PLAX 4.9 cm 4.2 - 5.9 / 3.9 - 5.3 cm LV Systolic Diameter PLAX 3.9 cm IVS Diastolic Thickness 1.2 cm 0.6 - 1.0 / 0.6 - 0.9 cm LVPW Diastolic Thickness 1.2 cm 0.6 - 1.0 / 0.6 - 0.9 cm LV Relative Wall Thickness 0.5 RV Internal Dim ED PLAX 2.9 cm LVOT Diameter 2.7 cm Aortic Root Diameter 3.7 cm LA Systolic Diameter LX 3.7 cm 3.0 - 4.0 / 2.7 - 3.8 cm M-MODE AV Cusp Separation MM 2.7 cm DOPPLER AV Peak Velocity 82.0 cm/s AV Peak Gradient 2.7 mmHg AV Mean Gradient 1.5 mmHg AV Velocity Time Integral 12.0 cm LVOT Peak Velocity 52.3 cm/s LVOT Peak Gradient 1.1 mmHg LVOT Velocity Time Integral 8.4 cm LVOT Cardiac Index 2232.8 cm/minm AV Area Cont Eq vti 4.0 cm AV Area Cont Eq pk 3.6 cm Mitral E Point Velocity 73.0 cm/s LV E' Lateral Velocity 13.7 cm/s Mitral E to LV E' Lateral Ratio 5.3 LV E' Septal Velocity 10.9 cm/s Mitral E to LV E' Septal Ratio 6.7 TR Peak Velocity 278.0 cm/s TR Peak Gradient 30.9 mmHg Right Atrial Pressure 10.0 mmHg Pulmonary Artery Systolic Pressu 40.9 mmHg Right Ventricular Systolic Press 40.9 mmHg PV Peak Velocity 33.8 cm/s PV Peak Gradient 0.5 mmHg FINDINGS LEFT VENTRICLE Normal left ventricular size. Mild concentric left ventricular hypertrophy. The left ventricular systolic function is low normal with an estimated ejection fraction in the rang e of 50- 55%. RIGHT VENTRICLE Normal right ventricular size and systolic function. LEFT ATRIUM The left atrial size is [id number] dilated. RIGHT ATRIUM The right atrial size is normal. ATRIAL SEPTUM Normal atrial septal thickness without atrial level shunting by limited color doppler interrogation. AORTA The aortic root and proximal ascending aorta are normal in size on limited imaging. MITRAL VALVE Mild mitral valve regurgitation. AORTIC VALVE Trileaflet aortic valve. No aortic valve stenosis or regurgitation. PULMONARY VALVE No pulmonary valve regurgitation or stenosis. VESSELS The inferior vena cava is normal in size. PERICARDIUM No pericardial effusion. Robert Albrecht MD, FACC, FSCAI (Electronically Signed) Final Date:27 June 2017 18:29
[2017-06-27] MEDS ORDERED: APIXABAN 5 MG TABLET PO SCH (21:00)
== END 2017-06-27 14:17 | disposition home or self-care (01) | DRG 310 ==
LOC: PHED 19:58 → PHEDA 22:26 → PHICU 23:18
PROVIDERS: ADMIT Hospitalist; ATTEND Hospitalist
DX: I48.91 Unspecified atrial fibrillation (principal); J06.9 Acute upper respiratory infection, unspecified; G47.30 Sleep apnea, unspecified; M19.90 Unspecified osteoarthritis, unspecified site; Z23 Encounter for immunization; Z86.711 Personal history of pulmonary embolism; Z87.891 Personal history of nicotine dependence; Z86.718 Personal history of other venous thrombosis and embolism
CPT/HCPCS: 71045; 80053; 82550; 82552; 83735; 83880; 84484; 85025; 85610; 85730; 87641; 87804; 90686; 93005; 93306; 96374; J1650; J2405; J7030; J7040; Q2038

== ENCOUNTER 2017-08-24 06:21 | Day surgery (SDC) | payer MEDICARE ==
[~2017-08-24] VITALS: Ht 177.8 cm; Wt 128.7 kg
[2017-08-24] VITALS (8 sets, daily range): BP systolic 113–151; BP diastolic 82–94; PULSE 72–90; RESP 16–18; TEMP 97.7–98.7; O2SAT 95–99
[~2017-08-24 06:21] MED LIST changes: -APIX5 PO; +APIX5TAB PO; +DILT31TA PO; -GABA100C4 PO; -OXYC1SOL5 PO; -OXYC20 PO; -PERI8.6T PO; +PROM6.256 PO; -Z.0.WALKERFOLD; +ZITHTAB PO
[2017-08-24] MEDS: SODIUM CHLORID 0.9% 500 ML INJ 500 ML IV SCH ×2 (06:45→23:25)
[2017-08-24] MEDS ORDERED: LORazepam 1 MG TAB SL SCH (06:45)
[2017-08-24] MEDS ORDERED: [UNRECOGNIZED DRUG - CODE] PO (06:54)
[2017-08-24] MEDS ORDERED: POVIDONE IODINE 5% (ANTISEPSIS KIT) 4 APPLICATIONS EACH NARE PRN (07:00)
[2017-08-24] MEDS ORDERED: METOPROLOL TARTRATE 25 MG TAB PO PRN (07:00)
[2017-08-24] MEDS ORDERED: CHLORHEXIDINE GLUCONATE 2 % 1 PACK (2 CLOTHS) TOPICAL PRN (07:00)
[2017-08-24] MEDS ORDERED: LACTATED RINGER'S 1000 ML IV PRN (07:00)
[2017-08-24] MEDS ORDERED: SODIUM CHLORID 0.9% 500 ML IV PRN (07:00)
[2017-08-24] MEDS ORDERED: DILT120T PO (07:06)
[2017-08-24 07:21] LABS: AUTOMATED NEUTROPHIL # 3.1 TH/MM3 (1.8-7.7); BASOPHIL % 0.8 % (0.0-2.0); EOSINOPHIL # 0.1 TH/MM3 (0-0.4); HEMATOCRIT 43.9 % (39.0-51.0); HEMOGLOBIN 15.4 GM/DL (13.0-17.0); LYMPH % 29.9 % (9.0-44.0); LYMPHOCYTE # 1.6 TH/MM3 (1.0-4.8); MEAN CELL VOLUME 89.2 FL (80.0-100.0); MEAN CORPUSCULAR HEMOGLOBIN 31.4 PG (27.0-34.0); MEAN CORPUSCULAR HGB CONC 35.2 % (32.0-36.0); MEAN PLATELET VOLUME 7.1 FL (7.0-11.0); MONO % 11.4 % (0.0-8.0); MONOCYTE # 0.6 TH/MM3 (0-0.9); NEUT % 55.9 % (16.0-70.0); PLATELET COUNT 242 TH/MM3 (150-450); RED BLOOD COUNT 4.92 MIL/MM3 (4.50-5.90); RED CELL DISTRIBUTION WIDTH 12.9 % (11.6-17.2); WHITE BLOOD COUNT 5.5 TH/MM3 (4.0-11.0)
[2017-08-24 07:30] LABS: PROTHROMBIN TIME - PATIENT 10.6 SEC (9.8-11.6)
[2017-08-24] MEDS ORDERED: HEPARIN-NS/PF FLUSH BAG 2,000 ML IV FLUSH ONE (07:31)
[2017-08-24] MEDS ORDERED: HEPARIN-D5W 25,000 U/250 ML 250 ML ONE (07:35)
[2017-08-24] MEDS ORDERED: HEPARIN SODIUM - IV 10,000 UNITS/10 ML VIAL ONE (07:36)
[2017-08-24] MEDS ORDERED: PROTAMINE SULFATE 50 MG/5 ML VIAL ONE (07:36)
[2017-08-24] MEDS ORDERED: LEVOFLOXACIN 500 MG PREMIX INJ 100 ML IV ONE (07:36)
[2017-08-24 07:41] LABS: BICARBONATE 23.6 MEQ/L (21.0-32.0); CALCIUM 8.6 MG/DL (8.5-10.1); CREATININE 0.97 MG/DL (0.60-1.30)
[2017-08-24] MEDS ORDERED: FUROSEMIDE 40 MG/4 ML VIAL ONE (10:01)
--- NOTE | 2017-08-24 10:14 | PD.CARD ---
Atrial Fibrillation Ablation PROCEDURE DATE: Aug 24, 2017 PROCEDURES PERFORMED: 1. Electrophysiology study on Isuprel infusion 2. CS cannulation 3. 3-D mapping 4. Transseptal approach 5. Right and left heart catheterization 6. Intracardiac echo 7. Radiofrequency ablation of atrial fibrillation 8. Pulmonary vein isolation 9. Posterior wall ablation 10. Mitral valve isolation 11. Mitral line creation 12. Roof line creation 13. Floor line creation 14. Anterior and posterior ablation 15. Cardioversion INDICATIONS FOR THE PROCEDURE Mr. Prince is a 61-year-old male with atrial fibrillation , very symptomatic, congestive heart failure, referred for electrophysiology study and ablation. The risks, the nature and the benefits of the procedure were clearly stated to him. The risks include pneumothorax, cardiac perforation, stroke, need for open heart surgery and even . The patient understood and agreed to proceed. DESCRIPTION OF THE PROCEDURE IN DETAIL As written informed consent was obtained prior to esophageal echocardiogram, the patient was kept on the table where he was prepped and draped in the usual sterile fashion. Conscious sedation was initiated and maintained throughout the procedure by the anesthesiologist. Once sedation was verified, the right and left inguinal areas were anesthetized with 2% Xylocaine. Using modified Seldinger technique, the left femoral vein was cannulated on three occasions, three guidewires were advanced. Over the wire a 6, 7 and a 10-Tunisian Hemaquet were advanced. Then the left femoral artery was cannulated on one occasion, one guidewire was advanced. Over the wire a 4-Tunisian Hemaquet was advanced. Then the right femoral vein was cannulated on one occasion, one guidewire was advanced. Over the wire a 8-Tunisian Hemaquet was advanced. Then under fluoroscopic guidance through the 6 and 7-Tunisian Hemaquet, two 5-Tunisian Carlos curved quadripolar electrophysiology catheters were advanced and placed around the His as well as coronary sinus. Basic interval was measured. The patient was in atrial fibrillation. Through the 10-Tunisian Hemaquet, a Cordis Martin AcuNav intracardiac echo catheter was advanced and placed at the right atrium. Multiple view was obtained. There was no pericardial effusion, pulmonary vein was seen, atrial septal was visualized. Then the 8-Tunisian Hemaquet in the right femoral vein was exchanged for Agilis transseptal sheath that was placed all the way to the superior vena cava. Through the sheath a Diogo needle was advanced, then the sheath, the dilator and the needle were progressed until foci engaged. Once engaged, the needle was advanced. RF was delivered for 2 seconds. I was able to cross into the left atrium. Once the needle crossed, the dilator was advanced. Once the dilator crossed, the sheath was advanced. Once the sheath crossed, the dilator and the needle were removed. At this point I did flood the system and fluid movement was seen in the left atrium the indicates the sheath is in good position. The patient already received 10,000 units of heparin. The goal is to keep an ACT around 350 during ablation. Then through the sheath a [place]. Boni 20 pulse circumferential catheter was advanced. Using [employer] endocardial solution mapping system, a two-dimensional configuration of the left atrium was obtained. Points were taken at the left superior and inferior veins, right superior and inferior veins, mitral valve, and appendages. Then through the sheath a St. Boni TactiCath 65cm 3.5mm irrigated tipped mapping and radiofrequency ablation catheter was advanced. Esophageal probe was placed temperature monitoring during ablation. When it increased to 0.5 degrees Celsius above baseline, I moved to a different area of the atrium. First I did isolate the left superior and inferior vein. I did make a big [place] pass around the veins. Posterior was ablated. Then a roof line was created, a floor line was created, a mitral line was isolated, then the mitral valve was isolated. I did create a line from the floor to the roof area, passing by the left atrial appendage. Then the right superior and inferior veins were isolated. I did remap the atrium. There is no significant signal in the atrium. At this point I decided to proceed with cardioversion. A 200 sync biphasic joule was delivered that converted the patient into sinus rhythm. At that point I did advance the circumferential catheter again into the vein. There was no signal into the vein, pacing from the vein showed no conduction to the atrium. Isuprel infusion was initiated at 10 mcg for over 10 minutes. No tachyarrhythmia was induced, post Isuprel no tachyarrhythmia was induced. At that point the procedure was complete. All catheters were removed, atrial septal sheath was exchanged for 9-Tunisian Hemaquet, intracardiac echo showed no pericardial effusion. There is still good flow in the pulmonary vein. The patient is going to be transferred to the recovery room. No incident report. The patient tolerated the procedure. Blood loss was minimal. FINDINGS 1. Electrocardiogram: At baseline the patient was in atrial fibrillation, post procedure the patient was in sinus rhythm. 2. Basic interval: Base cycle length was around 430. Post ablation she was around 750 milliseconds. AH at 78 and HV at 96 milliseconds. 3. Tachyarrhythmia: Atrial fibrillation was mapped and ablated. The ablation was successful. CONCLUSION Successful electrophysiology study, mapping, radiofrequency ablation of atrial fibrillation, pulmonary vein isolation, posterior ablation, mitral valve isolation, mitral line creation, roof line creation, floor line creation and cardioversion. COMMENTS AND RECOMMENDATIONS The patient is going to be transferred to the telemetry unit. Will be observed and when stable can be discharged home. Benedicto Bird MD Aug 24, 2017 10:14
[2017-08-24] MEDS ORDERED: LORazepam 2 MG/ML VIAL IV PUSH PRN (10:15)
[2017-08-24] MEDS ORDERED: ATROPINE SULFATE 1 MG/ML VIAL IV PUSH PRN (10:15)
[2017-08-24] MEDS ORDERED: LIDOCAINE HCL 1% 50 ML VIAL INFIL PRN (10:15)
[2017-08-24] MEDS ORDERED: SODIUM CHLOR 0.9% 250 ML INJ 250 ML IV PRN (10:15)
[2017-08-24] MEDS ORDERED: METOCLOPRAMIDE HCL 10 MG/2 ML VIAL IV PUSH PRN (10:15)
[2017-08-24] MEDS ORDERED: ONDANSETRON HCL 4 MG/2 ML VIAL IV PUSH PRN (10:15)
--- NOTE | 2017-08-24 10:28 | CATHPROC ---
GROUNDBOOTH HIS Report Study Information Study Number Admission Scheduled Start Study Start [id number] Aug 24 2017 6:21AM 08/24/2017 Aug 24 2017 6:42AM [facility] Electrophysiology Study Admit Source Facility Department Other [facility] - Transit Proof Machine Operator Physician and Clinical Staff Initial Benedicto Goldberg Microsoft Dynamics Consultant Migue Doran,RT(R) [employer] Consultant Kourtney Lopez,LEARNING DISABILITIES SPECIALIST Other Anesthesia, MOLDING CUTTER Recorder Jorge RN, Syed Recorder Karen Young RN Scrub Em Oh,ORIGINATION SPECIALIST TECH2 Procedures Performed Procedure Location (Site) Vessel Name Ablation Procedure Cardioversion ICE CATHETER INSERT Fem Vein (right) Femoral Vein RF Ablation LT. ATRIUM LT. [facility] Equipment Time Power Electronics Research Engineer Description Size Mfg Part Number Used/Scraped NEEDLE, TRANSSEPTAL NRG 98 [id number] 07:47 LaunchTrack Used C1 *[id number] [employer]/ EP [id number] 07:47 KIT, TRANSDUCER / AFIB Used PACER *[id number] CATHETER, TACTICATH ABLAT BUNDLE 07:47 BUND[facility] Used 65 BUNDLE *[id number]- BUNDLE [id number] CATHETER, FR7 OPTIMA SPIRAL 07:47 [facility] FR7 *[id number]- Used BUNDLE BUNDLE [id number] 07:47 [facility]UND[facility] CATHETER, JSN, QUAD BUNDLE FR 5 *[id number]- Used BUNDLE [id number] 07:47 [facility]UND[facility] CATHETER, JSN, QUAD BUNDLE FR 5 *[id number]- Used BUNDLE [id number] SET, COOL POINT TUBING 07:47 BUNDLE-[facility] *[id number]- Used BUNDLE BUNDLE SHEATH, FR8.5 STEERABLE SM 07:47 BUNDLE-[facility] 71CM [id number] Used 71CM BUNDLE COVER, TRANSDUCER CABLE 612-113 07:47 [employer] Used ACUNAV *[id number] 07:47 CORDIS/PACER SHEATH, FR9 JOHAN 11CM FR 9 [id number] Used [id number] 07:47 MEDLINE INDUSTRIES PACK, CCL CUSTOM * Used *[id number] 07:47 MEDLINE PACER GROVER, LIMB * 2530 *[id number] Used [id number] 07:47 TrewCap MEDICAL SHEATH, FR4.5 PRELUDE 11CM FR 4.5 Used 035ACT [id number] 07:47 NAMIC TUBING, HIGH PRESSURE 48" 48" Used *[id number] 07:47 NAMIC TUBING, HIGH PRESSURE 48" 48" Used *[id number] 07:47 TORRES MEDICAL BLANKET,WARM AIR CCL * Used *[id number] 07:47 [facility] MEDICAL ELECTRODE KIT, JONATHAN X SURFACE * Used *[id number] 428068 07:47 [facility] MEDICAL SHEATH, EPS, FR6 FAST CATH FR 6 Used *[id number] 07:47 [facility] MEDICAL SHEATH, EPS, FR7 FAST CATH FR 7 [id number] Used [id number] 07:47 [facility] MEDICAL SHEATH, EPS, FR8 FAST CATH FR 8 Used *[id number] CATHETER, ACUNAV FR10 ICE [id number] 08:33 LUCRECIA FR 10 Used (LUCRECIA) *[id number] TERUMO MEDICAL 09:54 SHEATH, FR10 TURUMO FR 10 [id number] Used [facility] PAD, ELECTROSURGICAL 07:47 * [id number] *[id number] Used SURGICAL GROUNDING (BLUE) Labs Hgb (g/dl) Hct (%) WBC (l/cumm) Platelets (thousands) 11.60-17.00 35.00-51.00 4.00-11.00 150.00-450.00 15.4 43.9 5.5 242 Glucose (mg/dl) BUN (mg/dl) Creatinine (mg/dl) BUN:Creatinine (1:x) 74.00-106.00 7.00-18.00 0.50-1.30 10.00-20.00 88 16 1.0 16 Na (meq/l) K (meq/l) 136.00-145.00 3.50-5.10 140 3.7 INR (PTT:PT) 0.90-1.10 1 CPK-MB (ng/ML) 0.50-3.60 Not Drawn Medication Medication Total Dose (Bolus/Oral) Medication Total Dosage/Unit 1% XYLOCAINE 20 mL HEPARIN 20186 units PROTAMINE 50 mg Medications (Bolus/Oral) Medication Time Given Dosage/Unit Administered By Reason 1% XYLOCAINE 08/24/2017 8:28:11 AM 20 mL Benedicto Bird 20 mL 1% XYLOCAINE given in lab by Benedicto Bird in Left Groin via Subcutaneous. Ordered by Robin Bird HEPARIN 08/24/2017 8:36:59 AM 64144 units Anesthesia, MOLDING CUTTER 71985 units HEPARIN given in lab by Anesthesia, MOLDING CUTTER via Peripheral IV. Ordered by Benedicto Bird. HEPARIN 08/24/2017 8:50:46 AM 4000 units Anesthesia, MOLDING CUTTER As per physicians blake bal order 4000 units HEPARIN given in lab by Anesthesia, MOLDING CUTTER via Peripheral IV. Ordered by Benedicto Bird. Reas on: As per physicians verbal order. HEPARIN 08/24/2017 9:02:21 AM 3000 units Anesthesia, MOLDING CUTTER As per physicians blake bal order 3000 units HEPARIN given in lab by Anesthesia, MOLDING CUTTER via Peripheral IV. Ordered by Benedicto Bird. Reas on: As per physicians verbal order. PROTAMINE 08/24/2017 10:01:01 AM 40 mg Anesthesia, MOLDING CUTTER 40 mg PROTAMINE given in lab by Anesthesia, MOLDING CUTTER. Ordered by Benedicto Bird. PROTAMINE 08/24/2017 10:14:08 AM 10 mg Anesthesia, MOLDING CUTTER 10 mg PROTAMINE given in lab by Anesthesia, MOLDING CUTTER. Ordered by Benedicto Bird. Medication (Drip) Medication Time Given Dosage/Unit Concentration/Unit Diluent (ml) Solution HEPARIN DRIP 08/24/2017 8:50:57 AM 1000 units/hr 89679 units 250 D5W 1000 units/hr HEPARIN DRIP given in lab by Anesthesia, MOLDING CUTTER via Peripheral IV. Pump/Drip Flow = 10 ml /hr [place] [address] units in 250 ml. Ordered by Benedicto Bird. Reason: As per physicians verbal order. ISUPREL 08/24/2017 9:45:31 AM 10 mcg/min 1 mg 250 NaCl .9 10 mcg/min ISUPREL given in lab by Anesthesia, MOLDING CUTTER via Peripheral IV. Pump/Drip Flow = 150 ml/hr usi ng NaCl .9 with a concentration of 1 mg in 250 ml. Ordered by Benedicto Bird. LEVAQUIN 08/24/2017 8:10:10 AM 500 mg 500 mg LEVAQUIN given in lab by Anesthesia, MOLDING CUTTER via Peripheral IV. Ordered by Benedicto Bird. Initial Case Assessment Cardiovascular HR NIBP Chest Pain 86 135/86 0 Edema Present Skin color Skin None Normal Warm Dry Circulatory - Right Pulses Dorsalis Pedis 1 Scale (0,1,2,3,4,d) Circulatory - Left Pulses Dorsalis Pedis 1 Scale (0,1,2,3,4,d) Circulatory - Lower Extremities Color Lower Right Color Lower Left Normal Normal Neurological State Oriented to time-place- Alert Moves all extremities person Respiration - General Respiration Rate SpO2 (%) (B/min) 20 95 Chronological Log Time Study Chronological Log 7:28:03 Patient arrived via Bed. 7:28:05 Patient Name, D.O.B, / Armband Verified By R.N. 7:28:05 Consent signed by the physician and the patient and verified by the Transit Proof Machine Operator staff. 7:28:06 Pre-op and post- op instructions given; patient acknowledges understanding of instructions. 7:28:06 Verbal Stimulation=2 Physical Stimulation=2 Airway=2 Respiration=2 TOTAL=8. (0=absent, 1=li mited, 2=present) 7:28:19 Anesthesia at bedside. Assumes care of patient. John 7:28:25 Patient has been NPO for More than 6Hrs. 7:28:26 Skin Breakdown- none per pt 7:28:27 Patient Warmer Placed on the Table. 7:28:28 Disposable Defibrillator Pads Placed On Patient. 7:28:30 Rigoberto Prominences Protected 7:28:31 IV Warmer Connected To Patient. 7:28:32 A # 20 IV was noted in the Forearm (left). Grade = 0 0.9ns kvo 7:28:32 A # 20 IV was noted in the Antecubital (right). Grade = 0 0.9ns kvo 7:28:33 History and physical on the chart. 7:35:42 MD responded Assessment: Initial Case, HR=86 BPM, JIBL=309/86 mmhg, Chest Pain=0, Edema=None, Color=Normal, S kin = Warm, Dry Right Pulses: Daniel Ped=1 Left Pulses: Daniel Ped=1 7:41:57 Lower Right Extremities: Color=Normal Lower Left Extremities: Color=Normal Neurological: State=Alert, Ox3, BOSCH Respiration: Resp=20 B/min, SpO2=95 % 7:42:43 Table restraints applied according to hospital policy 7:46:07 Reference ECG taken 8:02:50 MD arrived. 8:07:40 DR Carbajal contacted by DR Bird 8:10:07 IV Antibiotic Given in the Antecubital (left). 8:10:10 500 mg LEVAQUIN given in lab by Anesthesia, MOLDING CUTTER via Peripheral IV. Ordered by Benedicto Bird . 8:12:49 14 fr Dumont catheter inserted by Toan Patel RN without difficulty. Clear urine noted post inser tion 8:19:09 Bilateral groins prepped with 2% chlorhexidine, and draped after a 3 minute waiting time. Time Out. Correct patient, procedure, procedure equipment, site and side verified with physician present. Time 8:24:10 concurred by MD, individual staff and MOLDING CUTTER. 8:25:21 Case Start 8:25:34 JULIANA in progress 8:27:24 JULIANA COMPLETE 8:28:11 20 mL 1% XYLOCAINE given in lab by Benedicto Bird in Left Groin via Subcutaneous. Ordered by Benedicto Bird. 8:28:33 Vascular access was obtained in the Fem Vein (left). 8:28:50 Vascular access was obtained in the Fem Vein (left). 8:29:02 Vascular access was obtained in the Fem Vein (left). 8:29:47 Access site was Left Femoral Artery. A SHEATH, FR4.5 PRELUDE 11CM FR 4.5 was advanced into the Fem Art (left) using the Modified Seld joseluis technique. 8:30:02 AlLINE ATTACHED 8:30:44 A SHEATH, EPS, FR6 FAST CATH FR 6 was advanced into the Fem Vein (left) using the Modified S eldinger technique. 8:31:08 A SHEATH, EPS, FR7 FAST CATH FR 7 was advanced into the Fem Vein (left) using the Modified S eldinger technique. 8:31:21 A SHEATH, EPS, FR8 FAST CATH FR 8 was advanced into the Fem Vein (left) using the Modified S eldinger technique. 8:31:47 Vascular access was obtained in the Fem Vein (right). 8:32:01 A SHEATH, FR10 TURUMO FR 10 was advanced into the Fem Vein (right) using the Modified Seldin albert technique. 8:32:54 CATHETER, ACUNAV FR10 ICE (LUCRECIA) FR 10 Was Postioned. A CATHETER, JSN, QUAD BUNDLE FR 5 was advanced vis Fem Vein (left) and placed in the CS. Placem ent was visually 8:34:39 confirmed under fluoroscopy. A CATHETER, JSN, QUAD BUNDLE FR 5 was advanced vis Fem Vein (left) and placed in the HIS. Place ment was 8:35:01 visually confirmed under fluoroscopy. A SHEATH, FR8.5 STEERABLE SM 71CM BUNDLE 71CM was exchanged in the Fem Vein (right). This was n ecessary in 8:36:05 order for catheter support. 8:36:29 BAYLIS INSERTED 8:36:59 41925 units HEPARIN given in lab by Anesthesia, MOLDING CUTTER via Peripheral IV. Ordered by Robin Bird. A CATHETER, FR7 OPTIMA SPIRAL BUNDLE FR7 was advanced to the right atrium and passed through th e septal wall 8:38:03 to the left atrium. MAPPING IN PROGRESS 8:44:02 Activated Clotting Time Drawn 8:45:22 Catheter was removed FR7 OPTIMA SPIRAL A CATHETER, TACTICATH ABLAT 65 BUNDLE was advanced vis Fem Vein (right) and placed in the LA. P lacement was 8:45:52 visually confirmed under fluoroscopy. 8:50:00 CC out. MM in. 8:50:05 ACT (Normal Range 90-180) = 252 8:50:11 RF Ablation of the LT. ATRIUM with a CATHETER, TACTICATH ABLAT 65 BUNDLE. 4000 units HEPARIN given in lab by Anesthesia, MOLDING CUTTER via Peripheral IV. Ordered by Benedicto Bird . Reason: As per 8:50:46 physicians verbal order. 1000 units/hr HEPARIN DRIP given in lab by Anesthesia, MOLDING CUTTER via Peripheral IV. Pump/Drip Flow = 10 ml/hr using 8:50:57 [place] [address] units in 250 ml. Ordered by Benedicto Bird. Reason: As per krystal sicians verbal order. 8:57:32 Activated Clotting Time Drawn 9:02:12 ACT (Normal Range 90-180) = 305 3000 units HEPARIN given in lab by Anesthesia, MOLDING CUTTER via Peripheral IV. Ordered by Benedicto Bird Reason: As per 9:02:21 physicians verbal order. 9:08:14 Activated Clotting Time Drawn 9:16:20 ACT (Normal Range 90-180) = 361 9:18:08 RF Ablation of the LT. ATRIUM/ Pulmonary veins continues with a CATHETER, TACTICATH ABLAT 6 5 BUNDLE. 9:36:23 Ablation continues 9:43:16 ECG rhythm of AF noted. Patient cardioverted at 200 joules. Success 9:44:24 Catheter was removed TACTICATH ABLAT 65 BUNDLE. 10 mcg/min ISUPREL given in lab by YOVANY Olvera via Peripheral IV. Pump/Drip Flow = 150 ml/ hr using NaCl .9 9:45:31 with a concentration of 1 mg in 250 ml. Ordered by Benedicto Bird. 9:59:47 A SHEATH, FR9 JOHAN 11CM FR 9 was advanced into the Fem Vein (right) 10:00:35 Case End 10:00:52 Bedside Report will be given. 10:01:01 40 mg PROTAMINE given in lab by YOVANY Olvera. Ordered by Benedicto Bird. 10:02:02 Ablation procedure performed: AFIB. 10:02:13 EP Procedure was performed. 10:03:36 PACU called. Spoke to Arnoldo 10:04:11 In the Fem Vein (left) the SHEATH, EPS, FR6 FAST CATH FR [address] by Shanti Bird. 10:04:32 In the Fem Art (left) the SHEATH, FR4.5 PRELUDE 11CM FR 4.[address] by Benedicto Bird. 10:04:52 In the Fem Vein (left) the SHEATH, EPS, FR7 FAST CATH FR [address] by Shanti Bird. 10:05:02 In the Fem Vein (left) the SHEATH, EPS, FR8 FAST CATH FR [address] by Shanti Bird. 10:05:24 In the Fem Vein (right) the SHEATH, FR9 JOHAN 11CM FR [address] by Robin Bird. 10:05:46 Sterile dressing applied to sites 10:05:51 No case complications noted. 10:12:04 Catheters were removed 10:12:21 Activated Clotting Time Drawn 10:13:54 ACT (Normal Range 90-180) = 185 10:14:08 10 mg PROTAMINE given in lab by YOVANY Olvera. Ordered by Benedicto Bird. 10:21:10 Activated Clotting Time Drawn 10:23:27 ACT (Normal Range 90-180) = 143 10:23:56 No case complications noted. 10:24:05 Patient moved to [facility] End Study - Contrast Media Used In Study Contrast Total Opened (mL) Total Used (mL) Total Wasted (mL) Unspecified 0 0 0 End Study - Maximum Contrast Load Max Contrast Load (mL) 643.4 End Study - Radiation Exposure Fluoro Time (minutes) 1.2 End Study - Patient Disposition Complications Transferred To Interventional Outcome No Telemetry Bed successful
[2017-08-24] MEDS ORDERED: DO NOT ADM ANY ANTICOAGULANT DRUGS PRN (10:30)
[2017-08-24] MEDS ORDERED: *PROMETHAZINE 25 MG/ML VIAL PERIprocedural use ONLY ONE (10:33)
[2017-08-24] MEDS ORDERED: *ONDANSETRON 4 MG VIAL PERIprocedural Use ONLY ONE (10:33)
[2017-08-24] MEDS ORDERED: AMIODARONE 200 MG TAB PO SCH (12:00)
[2017-08-24] MEDS ORDERED: BACITRACIN OINT 0.9 GM PKT TOP ONE (12:00)
[2017-08-24] MEDS ORDERED: oxyCODONE/ACETAMINOPHEN 5 MG/325 MG TAB PO PRN ×2 (12:00)
[2017-08-24] MEDS: AMIODARONE 200 MG TAB PO SCH (16:00)
[2017-08-24] MEDS: APIXABAN 5 MG TABLET PO SCH (21:50)
[2017-08-25] VITALS (13 sets, daily range): BP systolic 119–158; BP diastolic 85–90; PULSE 64–98; RESP 16–18; TEMP 97–98.3; O2SAT 96–98
[2017-08-25] MEDS: AMIODARONE 200 MG TAB PO SCH (04:00)
[2017-08-25 06:58] LABS: INTERNATIONAL NORMALIZED RATIO 1.1 RATIO; PROTHROMBIN TIME - PATIENT 10.8 SEC (9.8-11.6)
[2017-08-25] MEDS ORDERED: AMIO200T PO ×2 (08:03)
--- NOTE | 2017-08-25 08:06 | PD.CARD.PN ---
Subjective Subjective Remarks Feeling better. Objective Medications Current Medications Medications (Trade) Dose Ordered Sig/Sharath Route Start Time Stop Time Status Last Admin Sodium Chloride 500 ml @ 30 mls/hr [id number] IV 08/24/17 06:45 (Percocet 5-325 Mg) 1 tab Q4H PRN PO 08/24/17 12:00 (Percocet 5-325 Mg) 2 tab Q4H PRN PO 08/24/17 12:00 (Ativan Inj) 0.5 mg UNSCH PRN IV PUSH 08/24/17 10:15 08/25/17 10:14 (Atropine Inj) 0.5 mg UNSCH PRN IV PUSH 08/24/17 10:15 Sodium Chloride 250 ml @ 500 mls/hr ONCE PRN IV 08/24/17 10:15 08/25/17 10:14 (Reglan Inj) 10 mg Q4H PRN IV PUSH 08/24/17 10:15 (Zofran Inj) 4 mg Q4H PRN IV PUSH 08/24/17 10:15 (Xylocaine 1% Inj (50 ml)) 10 ml UNSCH PRN INFIL 08/24/17 10:15 08/25/17 10:14 (Eliquis) 5 mg BID PO 08/24/17 21:00 08/24/17 21:50 (Cordarone) 200 mg DAILY PO 08/30/17 09:00 Miscellaneous Information ALL NURSING DEPARTME... UNSCH PRN .XX 08/24/17 10:30 08/25/17 10:29 (Cordarone) 400 mg Q12H PO 08/24/17 16:00 08/29/17 11:59 08/25/17 04:00 Vital Signs / I&O Vital Signs Date Time Temp Pulse Resp B/P (MAP) Pulse Ox O2 Delivery O2 Flow Rate FiO2 08/25/17 07:41 97.0 72 16 119/85 (96) 98 08/25/17 04:00 67 08/25/17 03:00 86 08/25/17 03:00 98.3 86 18 158/90 (112) 96 08/25/17 02:00 75 08/25/17 01:00 78 08/25/17 00:00 79 08/24/17 23:00 98.7 84 16 148/88 (108) 95 08/24/17 23:00 84 08/24/17 22:00 72 08/24/17 21:00 82 08/24/17 20:00 98.4 90 16 151/82 (105) 97 08/24/17 20:00 90 08/24/17 18:10 98.0 82 18 113/87 (96) 99 08/24/17 18:01 90 08/24/17 17:08 90 08/24/17 16:00 82 16 109/62 (78) 97 Nasal Cannula 2 08/24/17 15:00 82 16 107/62 (77) 96 Nasal Cannula 2 08/24/17 14:00 80 16 105/64 (78) 95 Nasal Cannula 2 08/24/17 13:30 80 16 103/63 (76) 97 Nasal Cannula 2 08/24/17 13:00 78 16 97/59 (72) 96 Nasal Cannula 2 08/24/17 12:30 86 16 97/58 (71) 96 Nasal Cannula 2 08/24/17 12:00 82 16 114/63 (80) 95 Nasal Cannula 2 08/24/17 11:45 84 16 116/74 (88) 95 Nasal Cannula 2 08/24/17 11:30 82 16 110/69 (83) 97 Nasal Cannula 2 08/24/17 11:15 84 16 123/79 (94) 100 Nasal Cannula 3 08/24/17 11:00 80 16 116/74 (88) 96 Nasal Cannula 3 08/24/17 10:45 84 16 105/60 (75) 98 Nasal Cannula 3 08/24/17 10:30 97.7 88 16 117/63 (81) 98 Nasal Cannula 3 I/O 08/24/17 08/24/17 08/24/17 08/25/17 08/25/17 08/25/17 07:00 15:00 23:00 07:00 15:00 23:00 Intake Total 100 ml 120 ml Output Total 1450 ml 300 ml Balance -1350 ml -180 ml Intake Oral 120 ml IV Total 100 ml Output Urine Total 1450 ml 300 ml # Bowel Movements 0 Physical Exam GENERAL: Well-nourished, well-developed patient. SKIN: Warm and dry. Groin site soft without bruising or bleeding. HEAD: Normocephalic. EYES: No scleral icterus. No injection or drainage. NECK: Supple, trachea midline. No JVD or lymphadenopathy. CARDIOVASCULAR: Regular rate and rhythm without murmurs, gallops, or rubs. RESPIRATORY: Breath sounds equal bilaterally. No accessory muscle use. GASTROINTESTINAL: Abdomen soft, non-tender, nondistended. EXTREMITIES: No cyanosis, or edema. NEUROLOGICAL: Awake, alert, and oriented x 3. Non-focal. Laboratory Laboratory Tests Test 08/25/17 06:21 Prothrombin Time 10.8 SEC Prothromb Time International Ratio 1.1 RATIO Activated Partial Thromboplast Time 24.8 SEC Assessment and Plan Problem List: (1) Atrial fibrillation ICD Codes: I48.91 - Unspecified atrial fibrillation Plan: Normal sinus rhythm on telemetry this morning, status post ablation. (2) S/P ablation of atrial fibrillation ICD Codes: Z98.890 - Other specified postprocedural states; Z86.79 - Personal history of other diseases of the circulatory system Plan: Continue apixaban, amiodarone 400 mg twice daily for 5 days then 200 mg daily. Follow-up with Dr. Bird in 3 weeks per my discussion with him. Contact office for any questions or concerns. Problem Qualifiers (1) Atrial fibrillation: Qualified Codes: I48.0 - Paroxysmal atrial fibrillation Ena Hinds Aug 25, 2017 08:06
[2017-08-25] MEDS: APIXABAN 5 MG TABLET PO SCH (09:47)
--- NOTE | 2017-08-26 07:49 | EKG ---
Date Performed: 08/24/2017 Time Performed: 07:22:18 PTAGE: 61 years EKG: Atrial fibrillation with controlled ventricular rate PVCs Nonspecific T-wave flattening Com pared to PREVIOUS TRACING , the heart rate has decreased PREVIOUS TRACIN06/26/2017 20.11 DOCTOR: Addi Rice Interpretating Date/Time 08/26/2017 07:47:42
--- NOTE | 2017-08-26 07:50 | EKG ---
Date Performed: 08/24/2017 Time Performed: 11:39:42 PTAGE: 61 years EKG: Sinus rhythm RIGHT BUNDLE BRANCH BLOCK ABNORMAL ECG Compared to PREVIOUS TRACING , right bundle branch block is new. PREVIOUS TRACIN08/24/2017 11.23 DOCTOR: Addi Rice Interpretating Date/Time 08/26/2017 07:49:09
--- NOTE | 2017-08-26 07:50 | EKG ---
Date Performed: 08/25/2017 Time Performed: 06:59:12 PTAGE: 61 years EKG: Sinus rhythm Nonspecific T-wave flattening Right bundle branch block is no longer present. Normal ECG PREVIOUS TRACING : 08/24/2017 11.39 DOCTOR: Addi Rice Interpretating Date/Time 08/26/2017 07:49:41
[2017-08-30] MEDS ORDERED: AMIODARONE 200 MG TAB PO SCH (09:00)
== END 2017-08-25 11:18 | disposition home or self-care (01) ==
LOC: HDOC 06:21 → HDIC 06:22 → HCIS 18:01 → HDOC 08-25 11:18
PROVIDERS: ATTEND Internal Medicine Interventional Cardiology
DX: I48.91 Unspecified atrial fibrillation (principal); I50.9 Heart failure, unspecified; R07.9 Chest pain, unspecified; I82.509 Chronic embolism and thrombosis of unspecified deep veins of unspecified lower extremity; I26.99 Other pulmonary embolism without acute cor pulmonale; G47.30 Sleep apnea, unspecified; Z79.01 Long term (current) use of anticoagulants
CPT/HCPCS: 00537; 80048; 85002; 85025; 85610; 85730; 86850; 86900; 86901; 92960; 93005; 93312; 93320; 93325; 93613; 93623; 93656; 93662; C1730; C1731; C1732; C1759; C1766; C2630; J1644; J1940; J1956; J2405; J2550; J2720; J3010

== ENCOUNTER 2017-09-14 13:38 | Emergency (ER) | payer MEDICARE ==
[~2017-09-14 13:38] MED LIST changes: +AMIO200T PO; -DILT31TA PO; -PROM6.256 PO; -ZITHTAB PO
[2017-09-14 13:42] VITALS: BP 129/93; PULSE 145; RESP 18; TEMP 97.7; O2SAT 97
[2017-09-14] MEDS ORDERED: DILTIAZEM HCL 25 MG/5 ML VIAL IV PUSH ONE (14:45)
[2017-09-14] MEDS ORDERED: SODIUM CHLORIDE 0.9% FLUSH 10 ML FLUSH IV FLUSH PRN (14:45)
[2017-09-14] MEDS ORDERED: DILTIAZEM HCL 50 MG/10 ML VIAL IV PUSH ONE (15:15)
[2017-09-14 15:37] VITALS: BP 107/80; PULSE 114; PULSE 137; PULSE 95; RESP 18; O2SAT 95; O2SAT 96
[2017-09-14 15:51] LABS: AUTOMATED NEUTROPHIL # 3.1 TH/MM3 (1.8-7.7); BASOPHIL % 0.9 % (0.0-2.0); EOSINOPHIL # 0.1 TH/MM3 (0-0.4); EOSINOPHIL % 2.2 % (0.0-4.0); HEMOGLOBIN 15.4 GM/DL (13.0-17.0); LYMPH % 27.2 % (9.0-44.0); LYMPHOCYTE # 1.4 TH/MM3 (1.0-4.8); MEAN CELL VOLUME 90.5 FL (80.0-100.0); MEAN CORPUSCULAR HEMOGLOBIN 32.4 PG (27.0-34.0); MEAN CORPUSCULAR HGB CONC 35.8 % (32.0-36.0); MEAN PLATELET VOLUME 7.6 FL (7.0-11.0); MONO % 10.8 % (0.0-8.0); MONOCYTE # 0.6 TH/MM3 (0-0.9); NEUT % 58.9 % (16.0-70.0); PLATELET COUNT 283 TH/MM3 (150-450); RED BLOOD COUNT 4.75 MIL/MM3 (4.50-5.90); WHITE BLOOD COUNT 5.2 TH/MM3 (4.0-11.0)
--- NOTE | 2017-09-14 15:51 | PD ---
HPI . Tachycardia Chief Complaint: Cardiac Complaint Time Seen by Provider: 14:43 Travel History International Travel<30 days: No Contact w/Intl Traveler<30days: No Traveled to known affect area: No History of Present Illness HPI This patient has a history of AF with RVR status post ablation on 08/24 who presents to us from the [facility] office because of tachycardia. The patient states that his symptoms started about 5 days ago. The only complaint that he has is occasional palpitations. He states that the palpitations are not persistent. He actually states that he feels fine now. His symptoms are very mild with no obvious modifying factors. PFSH Past Medical History Hx Anticoagulant Therapy: Yes (ELOQUIS) Arthritis: Yes Asthma: No Autoimmune Disease: No Anxiety: No Depression: No Heart Rhythm Problems: Yes (afib) Cancer: No Cardiovascular Problems: Yes High Cholesterol: No Chemotherapy: No Chest Pain: No Congestive Heart Failure: No COPD: No Cerebrovascular Accident: No Diabetes: No Diminished Hearing: No Endocrine: No Gastrointestinal Disorders: Yes GERD: No Genitourinary: No Headaches: Yes Hiatal Hernia: No Hypertension: Yes Immune Disorder: No Implanted Vascular Access Dvce: No Kidney Stones: No Musculoskeletal: Yes Neurologic: Yes Psychiatric: No Reproductive: No Respiratory: No Immunizations Current: No Migraines: No Radiation Therapy: No Renal Failure: No Seizures: No Sickle Cell Disease: No Sleep Apnea: No Thyroid Disease: No Ulcer: No Past Surgical History Abdominal Surgery: Yes (gall bladder) AICD: No Arteriovenous Shunt: No Cardiac Surgery: No Cholecystectomy: Yes (12/31/15) Ear Surgery: No Endocrine Surgery: No Eye Surgery: No Genitourinary Surgery: No Gynecologic Surgery: No Insulin Pump: No Joint Replacement: No Neurologic Surgery: No Oral Surgery: No Pacemaker: No Thoracic Surgery: No Other Surgery: Yes (BILATERAL ROTATOR CUFF SURGERIES) Social History Alcohol Use: Yes (RARE) Tobacco Use: No (QUIT 15 + YRS) Substance Use: No Allergies-Medications (Allergen,Severity, Reaction): Coded Allergies: No Known Allergies (Unverified Allergy, Unknown, 09/14/17) Reported Meds & Prescriptions Reported Meds & Active Scripts Active Amiodarone (Amiodarone HCl) 200 Mg Tab 200 Mg PO DAILY 30 Days Start 08/30 after completing loading dose of 400 mg twice daily. Eliquis (Apixaban) 5 Mg Tab 5 Mg PO BID Review of Systems Except as stated in HPI: all other systems reviewed are Neg HENT: No: Lightheadedness Cardiovascular: Positive: Palpitations, No: Chest Pain or Discomfort Respiratory: No: Shortness of Breath Physical Exam Narrative GENERAL: Awake and alert and in no acute distress. SKIN: Warm and dry. HEAD: Normocephalic/atraumatic. EYES: Pupils are equal. Extraocular movements are intact. NECK: Normal range of motion. CARDIOVASCULAR: Tachycardia at 144. No P waves observed. It is a very regular rhythm. RESPIRATORY: Nonlabored respirations. Lungs are clear. MUSCULOSKELETAL: Atraumatic. NEUROLOGICAL: Nonfocal. PSYCHIATRIC: Appropriate mood and affect. Data Data Last Documented VS Vital Signs Date Time Temp Pulse Resp B/P (MAP) Pulse Ox O2 Delivery O2 Flow Rate FiO2 09/14/17 17:25 75 18 102/77 (85) 100 Room Air 09/14/17 13:42 97.7 Orders Orders Electrocardiogram (09/14/17 13:55) Ckmb (Isoenzyme) Profile (09/14/17 13:55) Complete Blood Count With Diff (09/14/17 13:55) Comprehensive Metabolic Panel (09/14/17 13:55) Prothrombin Time / Inr (Pt) (09/14/17 13:55) Act Partial Throm Time (Ptt) (09/14/17 13:55) Troponin I (09/14/17 13:55) Ecg Monitoring (09/14/17 14:43) Blood Pressure (09/14/17 14:43) Iv Access Insert/Monitor (09/14/17 14:43) Oximetry (09/14/17 14:43) Vital Signs (09/14/17 14:43) Diltiazem Inj (Cardizem Inj) (09/14/17 14:45) Sodium Chloride 0.9% Flush (Ns Flush) (09/14/17 14:45) Diltiazem Inj (Cardizem Inj) (09/14/17 15:15) Resp Bipap / Cpap Non Invas Vt (09/14/17 ) Labs Laboratory Tests Test 09/14/17 14:50 White Blood Count 5.2 TH/MM3 Red Blood Count 4.75 MIL/MM3 Hemoglobin 15.4 GM/DL Hematocrit 43.0 % Mean Corpuscular Volume 90.5 FL Mean Corpuscular Hemoglobin 32.4 PG Mean Corpuscular Hemoglobin Concent 35.8 % Red Cell Distribution Width 13.0 % Platelet Count 283 TH/MM3 Mean Platelet Volume 7.6 FL Neutrophils (%) (Auto) 58.9 % Lymphocytes (%) (Auto) 27.2 % Monocytes (%) (Auto) 10.8 % Eosinophils (%) (Auto) 2.2 % Basophils (%) (Auto) 0.9 % Neutrophils # (Auto) 3.1 TH/MM3 Lymphocytes # (Auto) 1.4 TH/MM3 Monocytes # (Auto) 0.6 TH/MM3 Eosinophils # (Auto) 0.1 TH/MM3 Basophils # (Auto) 0.0 TH/MM3 CBC Comment DIFF FINAL Differential Comment Prothrombin Time 11.0 SEC Prothromb Time International Ratio 1.1 RATIO Activated Partial Thromboplast Time 28.3 SEC Blood Urea Nitrogen 15 MG/DL Creatinine 0.94 MG/DL Random Glucose 86 MG/DL Total Protein 7.6 GM/DL Albumin 3.7 GM/DL Calcium Level 8.6 MG/DL Alkaline Phosphatase 52 U/L Aspartate Amino Transf (AST/SGOT) 16 U/L Alanine Aminotransferase (ALT/SGPT) 26 U/L Total Bilirubin 0.6 MG/DL Sodium Level 141 MEQ/L Potassium Level 4.0 MEQ/L Chloride Level 107 MEQ/L Carbon Dioxide Level 23.9 MEQ/L Anion Gap 10 MEQ/L Estimat Glomerular Filtration Rate 82 ML/MIN Total Creatine Kinase 100 U/L Troponin I LESS THAN 0.02 NG/ML MDM Medical Decision Making Medical Screen Exam Complete: Yes Emergency Medical Condition: Yes Interpretation(s) EKG shows a narrow complex tachycardia with a rate of 143. It is a regular rhythm. Differential Diagnosis Differential diagnosis of tachycardia includes but is not limited to PSVT, atrial fibrillation with a rapid ventricular response, sinus tachycardia (due to hypovolemia, anemia, thyrotoxicosis, PE) Narrative Course This patient presents with a narrow complex tachycardia, presumably a flutter. He is asymptomatic currently. He has been treated with IV Cardizem 1 and his heart rate is down around 70. CBC & BMP Diagram 09/14/17 14:50 Total Protein 7.6, Albumin 3.7, Calcium Level 8.6, Alkaline Phosphatase 52, Aspartate Amino Transf (AST/SGOT) 16, Alanine Aminotransferase (ALT/SGPT) 26, Total Bilirubin 0.6 trop < 0.[address] Physician [address] Physician Communication Dr. Rice was contacted. Someone from his practice will be by to see the patient and make a disposition. Dr. Bird has seen the patient and would like for me to discharge him on Cardizem 180 mg QD. Diagnosis Primary Impression: Atrial fibrillation with RVR Patient Instructions: A-fib (Atrial Fibrillation) (DC), General Instructions Med/Other Pt SpecificInfo: Prescription(s) given Scripts Diltiazem CD 24 HR (Cardizem CD 24 HR) 180 Mg Caper 180 MG PO DAILY, #30 CAP 0 Refills Prov: Vicki Plasencia MD 09/14/17 Disposition: 01 DISCHARGE HOME Condition: Stable Vicki Plasencia MD Sep 14, 2017 15:51
[2017-09-14 15:56] VITALS: BP 98/65; PULSE 71; RESP 18; O2SAT 96
[2017-09-14 16:07] LABS: INTERNATIONAL NORMALIZED RATIO 1.1 RATIO
[2017-09-14 16:25] LABS: ALBUMIN 3.7 GM/DL (3.4-5.0); ALKALINE PHOSPHATASE 52 U/L (45-117); ALT (GPT) 26 U/L (12-78); AST (GOT) 16 U/L (15-37); BICARBONATE 23.9 MEQ/L (21.0-32.0); BLOOD UREA NITROGEN 15 MG/DL (7-18); CALCIUM 8.6 MG/DL (8.5-10.1); CHLORIDE 107 MEQ/L (98-107); CREATININE 0.94 MG/DL (0.60-1.30); GLOMERULAR FILTRATION RATE 82 ML/MIN (>89); GLUCOSE,RANDOM 86 MG/DL (74-106); SODIUM (NA) 141 MEQ/L (136-145); TOTAL BILIRUBIN ADULT 0.6 MG/DL (0.2-1.0); TOTAL PROTEIN 7.6 GM/DL (6.4-8.2); TROPONIN I LESS THAN 0.02 NG/ML (0.02-0.05)
[2017-09-14 17:25] VITALS: BP 102/77; PULSE 75; RESP 18; O2SAT 100
[2017-09-14] MEDS ORDERED: CARD180C5 PO (17:46)
[2017-09-14] MEDS ORDERED: DILTIAZEM-CD 180 MG CAP ER PO ONE (18:00)
[2017-09-14 18:25] VITALS: BP 112/72
--- NOTE | 2017-09-15 14:30 | EKG ---
Date Performed: 09/14/2017 Time Performed: 14:37:46 PTAGE: 61 years EKG: ATRIAL FLUTTER/TACHYCARDIA WITH RAPID VENTRICULAR RESPONSE Possible sinus tachycardia Clini tylor correlation is recommended ABNORMAL RHYTHM ECG PREVIOUS TRACING : 08/25/2017 06.59 DOCTOR: Otilio Morley Interpretating Date/Time 09/16/2017 07:02:14
--- NOTE | 2017-09-15 14:30 | EKG ---
Date Performed: 09/14/2017 Time Performed: 18:07:06 PTAGE: 61 years EKG: ATRIAL FIBRILLATION NONSPECIFIC T-WAVE ABNORMALITY ABNORMAL RHYTHM ECG Atrial fibrillation is now identified PREVIOUS TRACING : 10/23/2016 13.25 DOCTOR: Otilio Morley Interpretating Date/Time 09/15/2017 14:29:11
--- NOTE | 2017-09-15 15:48 | EKG ---
Date Performed: 09/14/2017 Time Performed: 14:53:10 PTAGE: 61 years EKG: SINUS TACHYCARDIA, POSSIBLE ATRIAL FLUTTER ABNORMAL RHYTHM ECG Since the PREVIOUS TRACING , no significant change noted PREVIOUS TRACIN09/14/2017 14.37 DOCTOR: Otilio Morley Interpretating Date/Time 09/15/2017 15:44:45
== END 2017-09-14 18:26 | disposition home or self-care (01) ==
LOC: NED 13:38 → NEPC 18:26
DX: I48.91 Unspecified atrial fibrillation (principal); I10 Essential (primary) hypertension; Z79.01 Long term (current) use of anticoagulants; Z87.891 Personal history of nicotine dependence
CPT/HCPCS: 80053; 82550; 84484; 85025; 85610; 85730; 93005; 96374

== ENCOUNTER 2017-10-22 06:06 | Day surgery (SDC) | payer MEDICARE ==
[~2017-10-22] VITALS: Ht 177.8 cm; Wt 126.2 kg
[2017-10-22] VITALS (12 sets, daily range): BP systolic 108–139; BP diastolic 68–91; PULSE 72–111; RESP 18–20; TEMP 97.6–98.4; O2SAT 95–98
[~2017-10-22 06:06] MED LIST changes: +CARD180C5 PO
[2017-10-22] MEDS ORDERED: POVIDONE IODINE 5% (ANTISEPSIS KIT) 4 APPLICATIONS EACH NARE PRN (06:30)
[2017-10-22] MEDS ORDERED: SODIUM CHLORID 0.9% 500 ML IV PRN (06:30)
[2017-10-22] MEDS ORDERED: LACTATED RINGER'S 1000 ML IV PRN (06:30)
[2017-10-22] MEDS ORDERED: CHLORHEXIDINE GLUCONATE 2 % 1 PACK (2 CLOTHS) TOPICAL PRN (06:30)
[2017-10-22] MEDS ORDERED: METOPROLOL TARTRATE 25 MG TAB PO PRN (06:30)
[2017-10-22] MEDS ORDERED: LORazepam 1 MG TAB SL SCH (06:45)
[2017-10-22] MEDS ORDERED: SODIUM CHLORID 0.9% 500 ML INJ 500 ML IV SCH (06:45)
[2017-10-22 07:13] LABS: AUTOMATED NEUTROPHIL # 3.1 TH/MM3 (1.8-7.7); BASOPHIL % 0.4 % (0.0-2.0); EOSINOPHIL % 0.2 % (0.0-4.0); HEMATOCRIT 44.3 % (39.0-51.0); HEMOGLOBIN 15.4 GM/DL (13.0-17.0); LYMPH % 28.2 % (9.0-44.0); LYMPHOCYTE # 1.5 TH/MM3 (1.0-4.8); MEAN CELL VOLUME 88.8 FL (80.0-100.0); MEAN CORPUSCULAR HEMOGLOBIN 30.9 PG (27.0-34.0); MEAN CORPUSCULAR HGB CONC 34.8 % (32.0-36.0); MEAN PLATELET VOLUME 7.5 FL (7.0-11.0); MONO % 12.1 % (0.0-8.0); MONOCYTE # 0.6 TH/MM3 (0-0.9); NEUT % 59.1 % (16.0-70.0); PLATELET COUNT 264 TH/MM3 (150-450); RED BLOOD COUNT 4.98 MIL/MM3 (4.50-5.90); WHITE BLOOD COUNT 5.3 TH/MM3 (4.0-11.0)
[2017-10-22 07:15] LABS: INTERNATIONAL NORMALIZED RATIO 1.1 RATIO; PROTHROMBIN TIME - PATIENT 10.7 SEC (9.8-11.6)
[2017-10-22 07:38] LABS: BICARBONATE 27.5 MEQ/L (21.0-32.0); CALCIUM 8.7 MG/DL (8.5-10.1)
[2017-10-22] MEDS ORDERED: FAMOTIDINE 20 MG/2 ML VIAL ONE (08:56)
[2017-10-22] MEDS ORDERED: HEPARIN-D5W 25,000 U/250 ML 250 ML ONE (08:56)
[2017-10-22] MEDS ORDERED: HEPARIN SODIUM - IV 10,000 UNITS/10 ML VIAL ONE (08:56)
[2017-10-22] MEDS ORDERED: MIDAZOLAM HCL 2 MG/2 ML VIAL ONE (08:56)
[2017-10-22] MEDS ORDERED: PROTAMINE SULFATE 50 MG/5 ML VIAL ONE (08:56)
[2017-10-22] MEDS ORDERED: SODIUM CHLOR 0.9% 250 ML INJ 250 ML ONE (08:56)
[2017-10-22] MEDS ORDERED: LEVOFLOXACIN 500 MG PREMIX INJ 100 ML IV ONE (08:58)
[2017-10-22] MEDS ORDERED: MORPHINE SULFATE 2 MG/ML SYRINGE ONE (11:21)
--- NOTE | 2017-10-22 11:29 | PD.CARD ---
Atrial Fibrillation Ablation PROCEDURE DATE: October 22, 2017 PROCEDURES PERFORMED: 1. Electrophysiology study on Isuprel infusion 2. CS cannulation 3. 3-D mapping 4. Transseptal approach 5. Right and left heart catheterization 6. Intracardiac echo 7. Radiofrequency ablation of atrial fibrillation 8. Pulmonary vein isolation 9. Posterior wall ablation 10. Mitral valve isolation 11. Mitral line creation 12. Left atrial tachycardia ablation 13. Roof line creation 14. Left atrial appendage ablation 15. Anterior wall ablation INDICATIONS FOR THE PROCEDURE Mr. Prince is a 61-year-old male with atrial fibrillation, very symptomatic, on multiple medications referred for electrophysiology study and ablation. The risks, the nature and the benefits of the procedure were clearly stated to him. The risks include pneumothorax, cardiac perforation, stroke, need for open heart surgery and even . The patient understood and agreed to proceed. DESCRIPTION OF THE PROCEDURE IN DETAIL As written informed consent was obtained prior to esophageal echocardiogram, the patient was kept on the table where he was prepped and draped in the usual sterile fashion. Conscious sedation was initiated and maintained throughout the procedure by the anesthesiologist. Once sedation was verified, the right and left inguinal areas were anesthetized with 2% Xylocaine. Using modified Seldinger technique, the left femoral vein was cannulated on three occasions, three guidewires were advanced. Over the wire a 6, 7 and a 10-Bolivian Hemaquet were advanced. Then the left femoral artery was cannulated on one occasion, one guidewire was advanced. Over the wire a 4-Bolivian Hemaquet was advanced. Then the right femoral vein was cannulated on one occasion, one guidewire was advanced. Over the wire a 8-Bolivian Hemaquet was advanced. Then under fluoroscopic guidance through the 6 and 7-Bolivian Hemaquet, two 5-Bolivian Carlos curved quadripolar electrophysiology catheters were advanced and placed around the His as well as coronary sinus. Basic interval was measured. The patient was in atrial fibrillation. Through the 10-Bolivian Hemaquet, a Cordis Martin AcuNav intracardiac echo catheter was advanced and placed at the right atrium. Multiple view was obtained. There is pericardial effusion, pulmonary vein was seen, atrial septal was visualized. Then the 8-Bolivian Hemaquet in the right femoral vein was exchanged for Agilis transseptal sheath that was placed all the way to the superior vena cava. Through the sheath a Diogo needle was advanced, then the sheath, the dilator and the needle were progressed until foci engaged. Once engaged, the needle was advanced. RF was delivered for 2 seconds. I was able to cross into the left atrium. Once the needle crossed, the dilator was advanced. Once the dilator crossed, the sheath was advanced. Once the sheath crossed, the dilator and the needle were removed. At this point I did flood the system and fluid movement was seen in the left atrium the indicates the sheath is in good position. The patient already received 12,000 units of heparin. The goal is to keep an ACT around 350 during ablation. Then through the sheath a [place]. Boni 20 pulse circumferential catheter was advanced. Using [employer] endocardial solution mapping system, a two-dimensional configuration of the left atrium was obtained. Points were taken at the left superior and inferior veins, right superior and inferior veins, mitral valve, and appendages. Then through the sheath a St. Boni TactiCath 65cm 3.5mm irrigated tipped mapping and radiofrequency ablation catheter was advanced. Esophageal probe was placed temperature monitoring during ablation. When it increased to 0.5 degrees Celsius above baseline, I moved to a different area of the atrium. First I did isolate the left superior and inferior vein. Patient was already into left atrial tachycardia. Posterior was ablated. Then a roof line was created, a floor was ablated, a mitral line was isolated, then the mitral valve was isolated. Left atrial appendage was ablated. During ablation of the lateral wall , patient converted back into sinus rhythm. Then the right superior and inferior veins were isolated. I did remap the atrium. I did advance the circumferential catheter again into the vein. There was no signal into the vein, pacing from the vein showed no conduction to the atrium. Isuprel infusion was initiated at 20 mcg for over minutes. No tachyarrhythmia was induced, post Isuprel no tachyarrhythmia was induced. At that point the procedure was complete. All catheters were removed, atrial septal sheath was exchanged for 9-Bolivian Hemaquet, intracardiac echo showed no pericardial effusion. There is still good flow in the pulmonary vein. The patient is going to be transferred to the recovery room. No incident report. The patient tolerated the procedure. Blood loss was minimal. FINDINGS 1. Electrocardiogram: At baseline the patient was in atrial fibrillation, post procedure the patient was in sinus rhythm. 2. Basic interval: Base cycle length was around 590ms. Post ablation she was around 900 milliseconds. AH at 90 and HV at 62 milliseconds. 3. Tachyarrhythmia: Atrial fibrillation was mapped and ablated. Atrial tachycardia was ablated. The ablation was successful. CONCLUSION Successful electrophysiology study, mapping, radiofrequency ablation of atrial fibrillation, left atrial tachycardia, pulmonary vein isolation, posterior ablation, left atrial appendage ablation,, mitral line creation, roof line creation. COMMENTS AND RECOMMENDATIONS The patient is going to be transferred to the telemetry unit. Will be observed and when stable can be discharged home. Benedicto Bird MD October 22, 2017 11:29
[2017-10-22] MEDS ORDERED: ATROPINE SULFATE 1 MG/ML VIAL IV PUSH PRN (11:30)
[2017-10-22] MEDS ORDERED: ONDANSETRON HCL 4 MG/2 ML VIAL IV PUSH PRN (11:30)
[2017-10-22] MEDS ORDERED: SODIUM CHLOR 0.9% 250 ML INJ 250 ML IV PRN (11:30)
[2017-10-22] MEDS ORDERED: oxyCODONE/ACETAMINOPHEN 5 MG/325 MG TAB PO PRN ×2 (11:30)
[2017-10-22] MEDS ORDERED: LORazepam 2 MG/ML VIAL IV PUSH PRN (11:30)
[2017-10-22] MEDS ORDERED: BACITRACIN OINT 0.9 GM PKT TOP ONE (11:30)
[2017-10-22] MEDS ORDERED: LIDOCAINE HCL 1% 50 ML VIAL INFIL PRN (11:30)
--- NOTE | 2017-10-22 11:41 | CATHPROC ---
Patient Name: JAVIER SPAULDING Study #: [id number] Initial MD: Benedicto Bird Date of : 1955 Study Date: 10/22/2017 Cardiac Catheterization Report 10/22/2017 11:41:10 AM Financial #: [id number] 1 of 10 Patient Name: JAVIER SPAULDING Study #: [id number] Initial MD: Benedicto Bird Date of : 1955 Study Date: 10/22/2017 Entire Case Report Patient Information Patient Name JAVIER SPAULDING Date of 1955 Age 61 years Financial # [id number] Gender M AlternateID Lab Number 2 Room Number DC05 Height (in) 70.0 Height (cm) 177.8 BSA 2.29 Weight (lbs) 247.0 Weight (kg) 112.3 Patient Address/Phone Number Home Address [facility] Home Phone Number [phone] [facility] [id number] Study Information Study Number Admission Scheduled Start Study Start [id number] Oct 22 2017 6:06AM 10/22/2017 Oct 22 2017 8:37AM [place] [facility] Electrophysiology Study Admit Source Facility Department Other [facility] Physician and Clinical Staff Initial Benedicto Goldberg Mailroom Clerk Migue Doran,RT(R) Mailroom Clerk Jessica, Kourtney,BLIND LACER Other Anesthesia, DEMURRAGE AGENT Recorder Johanny Finley,RN Recorder Isa Kovacs,CORBY Scrub Em Oh,ENVIRONMENTAL SERVICES TECHNICIAN TECH2 Procedures Performed Procedure Location (Site) Vessel Name Ablation Procedure ICE CATHETER INSERT RA Atruim Equipment Time Manager Federal Description Size Mfg Part Number Used/Scraped NEEDLE, TRANSSEPTAL NRG 98 [id number] 08:37 [facility] Used C1 *[id number] [employer]/ EP [id number] 08:37 KIT, TRANSDUCER / AFIB Used PACER *[id number] 10/22/2017 11:41:10 AM Financial #: [id number] 2 of 10 Patient Name: JAVIER SPAULDING Study #: [id number] Initial MD: Benedicto Bird Date of : 1955 Study Date: 10/22/2017 [id number] CATHETER, TACTICATH ABLAT BUNDLE 08:37 [facility] Used 65 BUNDLE *[id number]- BUNDLE [id number] CATHETER, FR7 OPTIMA SPIRAL 08:37 [facility] FR7 *[id number]- Used BUNDLE BUNDLE [id number] 08:37 [facility] CATHETER, JSN, QUAD BUNDLE FR 5 *[id number]- Used BUNDLE [id number] 08:37 [facility] CATHETER, JSN, QUAD BUNDLE FR 5 *2386493- Used BUNDLE 03450-PLAVSI SET, COOL POINT TUBING 08:37 [facility] *[id number]- Used BUNDLE BUNDLE SHEATH, FR8.5 STEERABLE SM 08:37 [facility] 71CM [id number] Used 71CM BUNDLE [id number] 11:17 C[employer] MEDICAL VASCADE, FR5 CLOSURE SYSTEM FR 5 Used *[id number] 11:19 [employer] VASCADE, FR6 CLOSURE SYSTEM FR 6\\7 Used *[id number] 11:19 [employer] VASCADE, FR6 CLOSURE SYSTEM FR 6\\7 Used *[id number] 11:19 C[employer] MEDICAL VASCADE, FR6 CLOSURE SYSTEM FR 6\\7 Used *[id number] 11:19 C[employer] MEDICAL VASCADE, FR6 CLOSURE SYSTEM FR 6\\7 Used *[id number] COVER, TRANSDUCER CABLE 612-113 08:37 [employer] Used ACUNAV *[id number] 08:37 CORDIS/PACER SHEATH, FR10 JOHAN 11CM FR 10 Used *[id number] 08:37 CORDIS/PACER SHEATH, FR9 JOHAN 11CM FR 9 [id number] Used [id number] 08:37 [employer] IND[employer] PACK, CCL CUSTOM * Used *0655202 08:37 MEDLINE PACER GROVER, LIMB * 2530 *[id number] Used [id number] 08:37 [employer] MEDICAL SHEATH, FR4.5 PRELUDE 11CM FR 4.5 Used [id number] [id number] 08:37 NAMIC TUBING, HIGH PRESSURE 48" 48" Used *6751562 [id number] 08:37 NAMIC TUBING, HIGH PRESSURE 48" 48" Used *8883718 [id number] 08:37 [employer] MEDICAL BLANKET,WARM AIR CCL * Used *[id number] [id number] 08:37 [facility] MEDICAL ELECTRODE KIT, JONATHAN X SURFACE * Used *5530523 797195 11:15 [facility] MEDICAL SHEATH, EPS, FR5 FAST CATH FR 5 Used *2536054 286957 08:37 [facility] MEDICAL SHEATH, EPS, FR6 FAST CATH FR 6 Used *7662849 08:37 [facility] MEDICAL SHEATH, EPS, FR7 FAST CATH FR 7 [id number] Used 552434 08:37 [facility] MEDICAL SHEATH, EPS, FR8 FAST CATH FR 8 Used *[id number] CATHETER, ACUNAV FR10 ICE [id number] 10:21 LUCRECIA FR 10 Used (LUCRECIA) *[id number] 10/22/2017 11:41:10 AM Financial #: [id number] Patient Name: JAVIER SPAULDING Study #: [id number] Initial MD: Benedicto Bird Date of : 1955 Study Date: 10/22/2017 [facility] PAD, ELECTROSURGICAL 08:37 * [id number] *[id number] Used SURGICAL GROUNDING (BLUE) Insurance Information Insurance Payor Private Health Insurance Third Republican Third Republican Number AETNA MEDICARE AETMCR Labs Hgb (g/dl) Hct (%) WBC (l/cumm) Platelets (thousands) 11.60-17.00 35.00-51.00 4.00-11.00 150.00-450.00 15.4 44.3 5.3 264 Glucose (mg/dl) BUN (mg/dl) Creatinine (mg/dl) BUN:Creatinine (1:x) 74.00-106.00 7.00-18.00 0.50-1.30 10.00-20.00 93 13 1.0 13 Na (meq/l) K (meq/l) 136.00-145.00 3.50-5.10 140 3.7 INR (PTT:PT) 0.90-1.10 1.1 CPK-MB (ng/ML) 0.50-3.60 Not Drawn Medication Medication Total Dose (Bolus/Oral) Medication Total Dosage/Unit 1% XYLOCAINE 40 mL HEPARIN 02181 units PROTAMINE 40 mg 10/22/2017 11:41:10 AM Financial #: [id number] 4 of 10 Patient Name: JAVIER SPAULDING Study #: [id number] Initial MD: Benedicto Bird Date of : 1955 Study Date: 8 Medications (Bolus/Oral) Medication Time Given Dosage/Unit Administered By Reason 1% XYLOCAINE 10/22/2017 10:13:24 AM 20 mL Benedicto Bird 20 mL 1% XYLOCAINE given in lab by Benedicto Bird in Left Groin via Subcutaneous. Ordered by Robin Bird. 1% XYLOCAINE 10/22/2017 10:15:55 AM 20 mL Benedicto Bird 20 mL 1% XYLOCAINE given in lab by Benedicto Bird in Right Groin via Subcutaneous. Ordered by Shanti Bird. HEPARIN 10/22/2017 10:24:16 AM 05188 units Anesthesia, DEMURRAGE AGENT 12245 units HEPARIN given in lab by Anesthesia, DEMURRAGE AGENT in Right Antecubital via Peripheral IV. Ordered by Benedicto Bird. HEPARIN 10/22/2017 10:37:01 AM 3000 units Anesthesia, DEMURRAGE AGENT 3000 units HEPARIN given in lab by Anesthesia, DEMURRAGE AGENT in Right Antecubital via Peripheral IV. Ordered b Benedicto Bain. HEPARIN 10/22/2017 10:51:27 AM 2000 units Anesthesia, DEMURRAGE AGENT 2000 units HEPARIN given in lab by Anesthesia, DEMURRAGE AGENT via Peripheral IV. Ordered by Benedicto Bird. PROTAMINE 10/22/2017 11:13:00 AM 40 mg Anesthesia, DEMURRAGE AGENT 40 mg PROTAMINE given in lab by Anesthesia, DEMURRAGE AGENT in Right Antecubital via Peripheral IV. Ordered by Benedicto Rodriguez. Medication (Drip) Medication Time Given Dosage/Unit Concentration/Unit Diluent (ml) Solution HEPARIN DRIP 10/22/2017 10:28:00 AM 1000 units/hr 31876 units 250 D5W 1000 units/hr HEPARIN DRIP given in lab by Anesthesia, DEMURRAGE AGENT in Right Antecubital via Peripheral IV. P ump/Drip Flow = 10 ml/hr [place] [address] units in 250 ml. Ordered by Benedicto Bird. ISUPREL 10/22/2017 11:04:11 AM 10 mcg/min 1 mg 250 NaCl .9 10 mcg/min ISUPREL given in lab by YOVANY Olvera via Peripheral IV. Pump/Drip Flow = 150 ml/hr usi ng NaCl .9 with a concentration of 1 mg in 250 ml. Ordered by Benedicto Bird. LEVAQUIN 10/22/2017 9:28:08 AM 500 mL/hr 500 100 NaCl .9 500 mL/hr LEVAQUIN given in lab by Benedicto Bird in Left Antecubital via Peripheral IV. Pump/Drip Robson w = 0 ml/hr using NaCl .9 with a concentration of 500 in 100 ml. Ordered by Beneidcto Bird. 10/22/2017 11:41:10 AM Financial #: [id number] Patient Name: JAVIER SPAULDING Study #: [id number] Initial MD: Benedicto Bird Date of : 1955 Study Date: 10/22/2017 Initial Case Assessment Cardiovascular HR Rhythm Chest Pain 100 FLUTTER 0 Edema Present Skin color Skin None Normal Warm Dry Circulatory - Right Pulses Dorsalis Pedis 1 Scale (0,1,2,3,4,d) Circulatory - Left Pulses Dorsalis Pedis 1 Scale (0,1,2,3,4,d) Neurological State Oriented to time-place- Alert Moves all extremities person Respiration - General Respiration Rate SpO2 (%) (B/min) 18 99 10/22/2017 11:41:10 AM Financial #: [id number] Patient Name: JAVIER SPAULDING Study #: [id number] Initial MD: Benedicto Bird Date of : 1955 Study Date: 10/22/2017 Final Case Assessment Cardiovascular HR Rhythm NIBP Chest Pain 74 NSR 103/61 0 Edema Present Skin color Skin None Normal Warm Dry Circulatory - Right Pulses Dorsalis Pedis Posterior Tibial Femoral 1 1 1 Scale (0,1,2,3,4,d) Circulatory - Left Pulses Dorsalis Pedis Posterior Tibial Femoral 1 1 1 Scale (0,1,2,3,4,d) Circulatory - Lower Extremities Color Lower Right Color Lower Left Normal Pale Neurological State Oriented to time-place- Alert Moves all extremities person Respiration - General Respiration Rate SpO2 (%) (B/min) 16 97 Chronological Log Time Study Chronological Log 8:47:11 Patient arrived via Bed. 8:47:12 Patient Name, D.O.B, / Armband Verified By R.N. 8:48:24 History and physical on the chart. 8:52:00 Anesthesia at bedside. Assumes care of patient. SEE RECORDS FOR ALL MEDS AND VITALS FOR PRO CEDURE 9:16:04 Patient has been NPO for More than 6Hrs. 9:16:06 Skin Breakdown- NON PER PATIENT 9:16:41 Patient Warmer Placed on the Table. 9:16:42 Disposable Defibrillator Pads Placed On Patient. 9:16:43 Rigoberto Prominences Protected 10/22/2017 11:41:10 AM Financial #: [id number] Patient Name: JAVIER SPAULDING Study #: [id number] Initial MD: Benedicto Bird Date of : 1955 Study Date: 10/22/2017 9:16:44 IV Warmer Connected To Patient. 9:17:06 A # 20 IV was noted in the Antecubital (left). Grade = 0 9:17:18 A # 20 IV was noted in the Antecubital (right). Grade = 0 Assessment: Initial Case, DX=921 BPM, Rhythm=FLUTTER, Chest Pain=0, Edema=None, Color=Normal, S kin = Warm, Dry Right Pulses: Daniel Ped=1 9:17:27 Left Pulses: Daniel Ped=1 Neurological: State=Alert, Ox3, BOSCH Respiration: Resp=18 B/min, SpO2=99 % 9:22:38 PATIENT INTUBATED AND SEDATED 9:23:50 15F LAU INSERTED CLEAR YELLOW URINE RETURN 9:26:43 Table restraints applied according to hospital policy 9:26:44 Bilateral groins prepped with 2% chlorhexidine, and draped after a 3 minute waiting time. 9:27:15 paged 500 mL/hr LEVAQUIN given in lab by Benedicto Bird in Left Antecubital via Peripheral IV. Pump/Dr ip Flow = 0 ml/hr 9:28:08 using NaCl .9 with a concentration of 500 in 100 ml. Ordered by Benedicto Bird. 9:40:30 MD arrived. Time Out. Correct patient, procedure, procedure equipment, site and side verified with physicia n present. Time 9:41:00 concurred by MD, individual staff and DEMURRAGE AGENT. Time Out #2 - Consents verified, patient in correct position, all results are labled and displa yed, safety precautions 9:41:00 taken, antibiotics administered. Time out concurred by MD, individual staff and DEMURRAGE AGENT in procedu re 9:42:32 Case Start 9:42:39 JULIANA IN PROGRESS 9:45:38 JULIANA COMPLETE 10:13:24 20 mL 1% XYLOCAINE given in lab by Benedicto Bird in Left Groin via Subcutaneous. Ordered by Benedicto Bird. 10:13:57 Vascular access was obtained in the Fem Vein (left). 10:14:13 Vascular access was obtained in the Fem Vein (left). 10:14:42 Vascular access was obtained in the Fem Vein (left). 10:14:49 A SHEATH, EPS, FR6 FAST CATH FR 6 was advanced into the Fem Vein (left) using the Modified Seldinger technique. 10:15:09 A SHEATH, EPS, FR7 FAST CATH FR 7 was advanced into the Fem Vein (left) using the Modified Seldinger technique. 10:15:15 A SHEATH, FR10 JOHAN 11CM FR 10 was advanced into the Fem Vein (left) using the Modified S eldinger technique. 10:15:38 Vascular access was obtained in the Fem Art (left). 10:15:48 A SHEATH, FR4.5 PRELUDE 11CM FR 4.5 was advanced into the Fem Art (right) using the Modifie d Seldinger technique. 10:15:55 20 mL 1% XYLOCAINE given in lab by Benedicto Bird in Right Groin via Subcutaneous. Ordered b Benedicto Bain. 10:18:13 Vascular access was obtained in the Fem Vein (right). 10:18:18 A SHEATH, EPS, FR8 FAST CATH FR 8 was advanced into the Fem Art (right) using the Modified Seldinger technique. A CATHETER, JSN, QUAD BUNDLE FR 5 was advanced vis Fem Vein (left) and placed in the CS. Placem ent was visually 10:18:51 confirmed under fluoroscopy. A CATHETER, JSN, QUAD BUNDLE FR 5 was advanced vis Fem Vein (left) and placed in the HIS. Place ment was 10:19:07 visually confirmed under fluoroscopy. 10:20:53 CATHETER, ACUNAV FR10 ICE (LUCRECIA) FR 10 Was Postioned. A SHEATH, FR8.5 STEERABLE SM 71CM BUNDLE 71CM was exchanged in the Fem Vein (right). This was n ecessary in 10:21:36 order for catheter support. 10:23:31 JUSTUS NEEDLE INSERTED 10/22/2017 11:41:10 AM Financial #: [id number] Patient Name: JAVIER SPAULDING Study #: [id number] Initial MD: Benedicto Bird Date of : 1955 Study Date: 10/22/2017 10:23:48 A eps was advanced to the right atrium and passed through the septal wall to the left atriu m. 10:24:00 JUSTUS NEEDLE REMOVED 44570 units HEPARIN given in lab by Anesthesia, DEMURRAGE AGENT in Right Antecubital via Peripheral IV. Or dered by Marge, 10:24:16 Benedicto. A CATHETER, FR7 OPTIMA SPIRAL BUNDLE FR7 was advanced vis Fem Vein (right) and placed in the LA . Placement 10:26:34 was visually confirmed under fluoroscopy. 10:27:00 MAPPING IN PROGRESS 1000 units/hr HEPARIN DRIP given in lab by Anesthesia, DEMURRAGE AGENT in Right Antecubital via Peripheral IV. Pump/Drip Flow = 10:28:00 10 ml/hr [place] [address] units in 250 ml. Ordered by Benedicto Bird. 10:29:30 Activated Clotting Time Drawn 10:31:11 MAPPING COMPLETE 10:31:30 MAPPING Catheter was removed 10:35:31 ACT (Normal Range 90-180) = 306 A CATHETER, TACTICATH ABLAT 65 BUNDLE was advanced vis Fem Vein (right) and placed in the LA. P lacement was 10:35:42 visually confirmed under fluoroscopy. 10:37:01 3000 units HEPARIN given in lab by Anesthesia, DEMURRAGE AGENT in Right Antecubital via Peripheral IV. Ordered by Benedicto Bird. 10:37:21 ABLATION ON PROGRESS 10:42:05 Activated Clotting Time Drawn 10:51:05 ACT (Normal Range 90-180) = 331 10:51:27 2000 units HEPARIN given in lab by Anesthesia, DEMURRAGE AGENT via Peripheral IV. Ordered by Robin Bird. 10:56:34 Activated Clotting Time Drawn 10:57:51 PACU called. Spoke to JOSÉ MIGUEL 11:00:34 ACT (Normal Range 90-180) = 343 10 mcg/min ISUPREL given in lab by Anesthesia, DEMURRAGE AGENT via Peripheral IV. Pump/Drip Flow = 150 ml/ hr using NaCl .9 11:04:11 with a concentration of 1 mg in 250 ml. Ordered by Benedicto Bird. 11:12:22 ISUPREL GTT DISCONTINUED PER MD 11:13:00 40 mg PROTAMINE given in lab by Anesthesia, DEMURRAGE AGENT in Right Antecubital via Peripheral IV. Or dered by Benedicto Bird. 11:13:38 ABLATION Catheter was removed A SHEATH, FR9 JOHAN 11CM FR 9 was exchanged in the Fem Vein (right). This was necessary in ord er to achieve 11:14:03 vascular hemostasis. A SHEATH, EPS, FR5 FAST CATH FR 5 was exchanged in the Fem Art (left). This was necessary in or daniel to achieve 11:14:32 vascular hemostasis. 11:16:57 Catheter(s) removed without difficulty 11:17:01 VASCADE, FR5 CLOSURE SYSTEM FR 5 placement in the Fem Art (left) 11:20:51 VASCADE, FR6 CLOSURE SYSTEM FR 6\\7 placement in the Fem Vein (left) 11:23:00 VASCADE, FR6 CLOSURE SYSTEM FR 6\\7 placement in the Fem Vein (left) 11:26:26 Activated Clotting Time Drawn 11:26:56 VASCADE, FR6 CLOSURE SYSTEM FR 6\\7 placement in the Fem Vein (left) 11:28:41 VASCADE, FR6 CLOSURE SYSTEM FR 6\\7 placement in the Fem Vein (right) 11:28:50 Case End 11:29:10 Sterile dressing applied to BILATERAL GROIN SITES 11:29:28 No case complications noted. 10/22/2017 11:41:10 AM Financial #: [id number] Patient Name: JAVIER SPAULDING Study #: [id number] Initial MD: Benedicto Bird Date of : 1955 Study Date: 10/22/2017 11:29:29 Cine recording checked. 11:29:31 Bedside Report will be given. Assessment: Final Case, HR=74 BPM, Rhythm=NSR, QNUT=729/61 mmhg, Chest Pain=0, Edema=None, Col or=Normal, Skin = Warm, Dry Right Pulses: Daniel Ped=1, Post Tib=1, Femoral=1 Left Pulses: Daniel Ped=1, Post Tib=1, Femoral=1 11:29:33 Lower Right Extremities: Color=Normal Lower Left Extremities: Color=Pale Neurological: State=Alert, Ox3, BOSCH Respiration: Resp=16 B/min, SpO2=97 % 11:29:43 ACT (Normal Range 90-180) = 164 11:32:04 CLOSURE Device cardS placed in patient's chart. 11:32:23 Verbal Stimulation=2 Physical Stimulation=2 Airway=2 Respiration=2 TOTAL=8. (0=absent, 1=l imited, 2=present) 11:32:47 Ablation procedure performed: AFIB. 11:32:58 EP Procedure was performed. 11:33:22 Defibrillator and ground pads removed. Skin intact. 11:38:50 PACU called. Spoke to JAIRON 11:43:59 Patient moved to [facility] End Study - Contrast Media Used In Study Contrast Total Opened (mL) Total Used (mL) Total Wasted (mL) Unspecified 0 0 0 End Study - Maximum Contrast Load Max Contrast Load (mL) 561.4 End Study - Radiation Exposure Fluoro Time (minutes) 1.1 End Study - Patient Disposition Complications Transferred To Interventional Outcome No Telemetry Bed successful 10/22/2017 11:41:10 AM Financial #: [id number]
[2017-10-22] MEDS ORDERED: DO NOT ADM ANY ANTICOAGULANT DRUGS PRN (12:00)
[2017-10-22] MEDS ORDERED: ONDANSETRON HCL 4 MG/2 ML VIAL IV ONE (12:00)
[2017-10-22] MEDS ORDERED: ePHEDrine/NS 25 MG/5 ML SYRINGE IV ONE (12:00)
[2017-10-22] MEDS ORDERED: LIDOCAINE HCL 1% PF 5 ML SYRINGE OTHER ONE (12:00)
[2017-10-22] MEDS ORDERED: PHENYLEPH/NS 1000 MCG/10 ML SYR IV ONE (12:00)
[2017-10-22] MEDS ORDERED: GLYCOPYRROLATE 1 MG/5 ML SYRINGE IV PUSH ONE (12:00)
[2017-10-22] MEDS ORDERED: ROCURONIUM INJ 50 MG/5 ML SYRINGE IV PUSH ONE (12:00)
[2017-10-22] MEDS ORDERED: DEXAMETHASONE SOD PHOS 4 MG/ML VIAL IV ONE (12:00)
[2017-10-22] MEDS ORDERED: PROPOFOL 200 MG/20 ML AMP IV ONE (12:00)
[2017-10-22] MEDS ORDERED: NEOSTIGMINE 5 MG/5 ML SYRINGE IV PUSH ONE (12:00)
[2017-10-22] MEDS ORDERED: *PROMETHAZINE 25 MG/ML VIAL PERIprocedural use ONLY ONE (12:04)
[2017-10-22] MEDS ORDERED: *diphenhydrAMINE HCL 50 MG/ML VIAL PERIprocedural Use ONLY ONE (12:16)
[2017-10-22] MEDS ORDERED: *morphine SULFATE 4 MG/ML PERIprocedure ONLY ONE (14:19)
--- NOTE | 2017-10-22 15:28 | EKG ---
Date Performed: 10/22/2017 Time Performed: 06:48:52 PTAGE: 61 years EKG: CONSIDER ACUTE ST ELEVATION DE Atrial flutter with rapid ventricular response with 2:1 A-V block. Possible inferior infarct - age undetermined Lateral ST elevation, CONSIDER ACUTE INFA RCT Abnormal ECG PREVIOUS TRACING : 09/14/2017 18.07 Since the prior tracing, the ST segment elevation inferiorl y is new. This is nonspecific in these low voltage leads, but an inferior wall infarct of indetermina te age cannot be excluded. The previously noted atrial fibrillation is now more organized and appears that the patient is in atrial flutter. Significant serial changes have occurred. DOCTOR: Jade Nye Interpretating Date/Time 10/22/2017 15:26:12
[2017-10-22] MEDS: APIXABAN 5 MG TABLET PO SCH (20:29)
[2017-10-23] VITALS (11 sets, daily range): BP systolic 111–119; BP diastolic 73; PULSE 81–96; RESP 19–20; TEMP 98; O2SAT 94–96
[2017-10-23 06:11] LABS: INTERNATIONAL NORMALIZED RATIO 1.1 RATIO; PROTHROMBIN TIME - PATIENT 11.3 SEC (9.8-11.6)
[2017-10-23] MEDS ORDERED: AMIODARONE 200 MG TAB PO SCH (09:00)
[2017-10-23] MEDS: APIXABAN 5 MG TABLET PO SCH (09:19)
--- NOTE | 2017-10-23 11:25 | HHI.PR ---
Subjective Remarks Feeling better Objective Vital Signs Date Time Temp Pulse Resp B/P (MAP) Pulse Ox O2 Delivery O2 Flow Rate FiO2 10/23/17 09:15 98.0 93 19 117/73 (88) 94 10/23/17 09:00 94 10/23/17 08:00 84 10/23/17 07:13 85 10/23/17 05:00 92 10/23/17 04:08 87 10/23/17 04:00 98.0 81 20 111/73 (86) 96 10/23/17 03:09 87 10/23/17 02:02 89 10/23/17 01:00 85 10/23/17 00:00 86 10/23/17 00:00 98.0 96 20 119/73 (88) 96 10/22/17 23:00 75 10/22/17 22:08 98 10/22/17 21:00 104 10/22/17 20:00 103 10/22/17 20:00 98.1 104 20 123/79 (94) 95 10/22/17 19:00 104 10/22/17 18:00 106 10/22/17 17:00 104 10/22/17 16:00 96 10/22/17 15:35 97.9 72 18 118/68 (85) 97 10/22/17 15:10 97.6 94 18 139/91 (107) 98 10/22/17 15:00 98 10/22/17 14:45 97.6 92 14 103/62 (76) 97 Nasal Cannula 2 10/22/17 14:00 91 14 129/71 (90) 97 Nasal Cannula 2 10/22/17 13:30 92 19 97/57 (70) 99 Nasal Cannula 3 10/22/17 13:00 89 22 103/62 (76) 97 Nasal Cannula 3 10/22/17 12:45 82 19 100/63 (75) 98 Nasal Cannula 3 10/22/17 12:30 79 20 96/55 (69) 94 Nasal Cannula 3 10/22/17 12:15 80 19 113/59 (77) 93 Nasal Cannula 3 10/22/17 12:00 97.1 79 16 127/80 (96) 98 Nasal Cannula 3 I/O 10/22/17 10/22/17 10/22/17 10/23/17 10/23/17 10/23/17 07:00 15:00 23:00 07:00 15:00 23:00 Intake Total 220 ml 720 ml 1200 ml Output Total 75 ml 125 ml 1450 ml Balance 145 ml 595 ml -250 ml Intake Oral 220 ml 720 ml 1200 ml IV Total 0 ml Output Urine Total 75 ml 125 ml 1450 ml # Voids 1 Result Diagram: 10/22/17 0638 10/22/17 0638 Imaging Alert, fully oriented Lungs: ventilated Heart: S1, S2 regular, no gallop Abdomen: soft, no mass Ext: no edema Current Medications Medications (Trade) Dose Ordered Sig/Sharath Route Start Time Stop Time Status Last Admin Lactated Ringer's 1,000 ml @ 30 mls/hr Q24H PRN IV 10/22/17 06:30 10/25/17 06:29 Sodium Chloride 500 ml @ 30 mls/hr [id number] PRN IV 10/22/17 06:30 10/25/17 06:29 (Lopressor) 25 mg CO [employer] PRN PO 10/22/17 06:30 10/25/17 06:29 (Betadine 5% Antisepsis Kit) 1 applic [employer] PRN EACH NARE 10/22/17 06:30 10/25/17 06:29 (Chlorhexidine 2% Cloth) 3 pack CO [employer] PRN TOPICAL 10/22/17 06:30 10/25/17 06:29 Sodium Chloride 500 ml @ 30 mls/hr [id number] IV 10/22/17 06:45 (Percocet 5-325 Mg) 1 tab Q4H PRN PO 10/22/17 11:30 (Percocet 5-325 Mg) 2 tab Q4H PRN PO 10/22/17 11:30 10/22/17 15:47 (Ativan Inj) 0.5 mg UNSCH PRN IV PUSH 10/22/17 11:30 10/23/17 11:29 (Atropine Inj) 0.5 mg UNSCH PRN IV PUSH 10/22/17 11:30 Sodium Chloride 250 ml @ 500 mls/hr ONCE PRN IV 10/22/17 11:30 10/23/17 11:29 (Zofran Inj) 4 mg Q4H PRN IV PUSH 10/22/17 11:30 (Xylocaine 1% Inj (50 ml)) 10 ml UNSCH PRN INFIL 10/22/17 11:30 10/23/17 11:29 (Cordarone) 200 mg DAILY PO 10/23/17 09:00 10/23/17 09:19 (Eliquis) 5 mg BID PO 10/22/17 21:00 10/23/17 09:19 ([facility] Nursing Information) ALL NURSING DEPARTME... UNSCH PRN .XX 10/22/17 12:00 10/23/17 11:59 Assessment and Plan Problem List: (1) Atrial fibrillation with RVR ICD Codes: I48.91 - Unspecified atrial fibrillation Plan: SP ablation Doing well In sinus rhythm ambulating Can be DH ]Follow up as previously scheduled Benedicto Bird MD October 23, 2017 11:25
--- NOTE | 2017-10-23 21:03 | EKG ---
Date Performed: 10/22/2017 Time Performed: 12:29:38 PTAGE: 61 years EKG: Sinus rhythm NONSPECIFIC T-WAVE ABNORMALITY When compared to previous tracing, heart rate has slowed. BORDERLINE ECG PREVIOUS TRACING : 10/22/2017 06.48 DOCTOR: Danitza English Interpretating Date/Time 10/23/2017 16:51:46
--- NOTE | 2017-10-23 21:06 | EKG ---
Date Performed: 10/23/2017 Time Performed: 02:28:44 PTAGE: 61 years EKG: Sinus rhythm with borderline 1st degree A-V block Possible inferior infarct - age undetermined Since previous tra cing, no significant change noted Abnormal ECG PREVIOUS TRACING : 10/22/2017 12.29 DOCTOR: Danitza English Interpretating Date/Time 10/23/2017 16:52:00
== END 2017-10-23 12:26 | disposition home or self-care (01) ==
LOC: HDIC 06:06 → HDOC 06:06 → HCIS 15:00 → HDOC 10-23 12:26
PROVIDERS: ATTEND Internal Medicine Interventional Cardiology
DX: I48.91 Unspecified atrial fibrillation (principal); I47.1 Supraventricular tachycardia; I48.92 Unspecified atrial flutter; Z79.01 Long term (current) use of anticoagulants; Z01.810 Encounter for preprocedural cardiovascular examination; Z01.818 Encounter for other preprocedural examination
CPT/HCPCS: 00537; 80048; 85002; 85025; 85610; 85730; 86850; 86900; 86901; 93005; 93312; 93320; 93325; 93613; 93623; 93656; 93662; C1730; C1731; C1732; C1759; C1760; C1766; C2630; G0269; J1100; J1200; J1644; J1956; J2250; J2270; J2370; J2405; J2550; J2710; J2720; J3010; J7050